=== PATIENT | female | born 1965 | race Caucasian/White ===

== ENCOUNTER → 2017-06-05 18:01 | Outpatient (CLI) | payer BC, SELFPAY ==
--- NOTE | 2017-06-05 18:05 | CT_ITS ---
STUDY: CT CHEST WITH CONTRAST REASON FOR EXAM: Female, 52 years old. RADIATION DOSAGE (If Supplied By Facility): CTDIvol = ( 8.64 ) mGy, DLP = ( 257.66 ) mGycm TECHNIQUE: Transaxial imaging was performed following intravenous administration of 100 ml of Isovue 300 contrast material. Multiplanar coronal and sagittal images were reformatted. Individualized dose optimization techniques were used for this CT. COMPARISON: 05/09/2016 FINDINGS: Mild apical pleural thickening. There is a 6 mm pulmonary nodule left upper lung on image 25. Stable 3.5 mm pulmonary nodule in the superior segment of the right lower lung on image 63. No acute infiltrate. There is no demonstrated pleural abnormality. Normal heart and pericardium. Normal mediastinum. Normal hilar regions. Normal enhanced pulmonary arteries. Normal aorta arch and descending thoracic aorta. Normal osseous structures. There is no demonstrated abnormality of the visualized upper abdomen. CT/Chest WITH Contrast IMPRESSION: Stable small pulmonary nodules. No new pulmonary nodules. No acute infiltrate. Electronically Signed: Popeye Herzog DO at 19:16 EST , Service support ,
== END ==
PROVIDERS: Family Provider Family Medicine; PCP Family Medicine; Visit Provider Family Medicine
DX: R91.8 Other nonspecific abnormal finding of lung field (principal)
CPT/HCPCS: 71260; Q9967

== ENCOUNTER → 2017-07-10 11:18 | Outpatient (CLI) | payer BC, SELFPAY ==
[2017-07-10 15:09] LABS: Absolute Lymphocyte Count 2.01 X10^3/ul (0.83-4.51); Absolute Neutrophil Count 3.7 X10^3/uL (2.0-7.7); Basophil# 0.02 X10^3/uL; Basophil% 0.3 % (0-1); Eosinophil# 0.11 X10^3/uL; Eosinophils% 1.8 % (0-5); Hematocrit 45.7 % (37-47); Hemoglobin 15.3 g/dl (12.0-15.0); Lymphocyte # 2.01 X10^3/ul (4.0); Lymphocyte % 32.4 % (19-41); Mean Corp Hgb Conc 33.5 g/gl (32-36); Mean Corpuscular Hgb 29.7 pg (27.0-32.0); Mean Corpuscular Volume 88.7 fL (81-99); Mean Platelet Vol. 9.7 fl (6.2-12.0); Monocyte# 0.38 X10^3/uL; Monocyte% 6.1 % (0-10); Neutrophil # 3.68 X10^3/uL (2.7-7.7); Neutrophil % 59.4 % (47-70); POSITIVE COUNT NO; POSITIVE DIFFERENTIAL NO; POSITIVE MORPHOLOGY NO; Platelet Count 195 K/mm3 (150-450); RBC Distribution Width SD 41.9 fl (35.1-43.9); Red Blood Count 5.15 M/mm3 (4.2-5.4); White Blood Count 6.2 K/mm3 (4.4-11.0)
[2017-07-10 15:27] LABS: Anion Gap 8 (5-15); BUN 13 mg/dL (7-18); BUN/Creat Ratio 15.2 RATIO (10-20); Chloride 101 mmol/L (98-107); Cholesterol 251 mg/dL (200); Creatinine, Serum 0.85 mg/dL (0.55-1.02); EST Glomerular Filtration Rate 75 mL/min (>60); Est Glom Filt Rate - Afr Amer 91 mL/min (>60); Glucose 79 mg/dL (74-106); High Density Lipoprotein 56 mg/dL; Potassium 3.8 mmol/L (3.5-5.1); Sodium Level 140 mmol/L (136-145); Thyroid Stim Hormone (TSH) 1.13 uIU/mL (0.358-3.74); Triglycerides 132 mg/dL; Very Low Density Lipoprotein 26 mg/dL (5-40)
== END ==
PROVIDERS: Family Provider Family Medicine; PCP Family Medicine; Visit Provider Family Medicine
DX: E03.9 Hypothyroidism, unspecified (principal); J44.9 Chronic obstructive pulmonary disease, unspecified
CPT/HCPCS: 36415; 80048; 80061; 84443; 85025

== ENCOUNTER → 2017-08-14 10:48 | Outpatient (CLI) | payer BC, SELFPAY | PROVIDERS: Family Provider Family Medicine; PCP Family Medicine; Visit Provider Family Medicine | DX: J44.9 Chronic obstructive pulmonary disease, unspecified (principal) | CPT/HCPCS: 87070; 87205 ==

== ENCOUNTER → 2017-12-21 16:34 | Outpatient (CLI) | payer BC, SELFPAY ==
--- NOTE | 2017-12-21 16:37 | RAD_ITS ---
STUDY: X-RAY CHEST REASON FOR EXAM: Female, 52 years old. COPD and wheezing and cough. TECHNIQUE: Single AP portable view of the chest. COMPARISON: 01 January 2017 FINDINGS: The lungs are clear and expanded. Mild COPD related changes are present. There is no demonstrated pleural abnormality. Normal size heart. Normal mediastinum and emerita. Normal visualized pulmonary arteries. Normal visualized aortic arch and descending thoracic aorta. Normal visualized thoracic spine. Normal visualized ribs, clavicles, and shoulders. There is no demonstrated abnormality of the visualized soft tissue structures of the upper abdomen. RAD/Chest PA and Lateral IMPRESSION: No evidence of acute cardiopulmonary process. COPD related changes. Electronically Signed: Andrew Bear DO at 9:08 EDT , Service support ,
== END ==
PROVIDERS: Family Provider Family Medicine; PCP Family Medicine; Visit Provider Family Medicine
DX: J44.9 Chronic obstructive pulmonary disease, unspecified (principal)
CPT/HCPCS: 71046

== ENCOUNTER → 2017-12-24 15:51 | Outpatient (CLI) | payer BC, SELFPAY | PROVIDERS: Family Provider Family Medicine; PCP Family Medicine; Visit Provider Family Medicine | DX: J44.9 Chronic obstructive pulmonary disease, unspecified (principal) | CPT/HCPCS: 87070; 87205 ==

== ENCOUNTER → 2018-01-14 08:02 | Outpatient (CLI) | payer BC, SELFPAY | PROVIDERS: Family Provider Family Medicine; PCP Family Medicine; Visit Provider Family Medicine | DX: J44.1 Chronic obstructive pulmonary disease with (acute) exacerbation (principal) | CPT/HCPCS: 87015; 87070; 87102; 87106; 87116; 87205; 87206 ==

== ENCOUNTER → 2018-01-21 09:30 | Outpatient (CLI) | payer BC, SELFPAY ==
[2018-01-21 12:28] LABS: Absolute Lymphocyte Count 1.54 X10^3/ul (0.83-4.51); Basophil# 0.02 X10^3/uL; Basophil% 0.4 % (0-1); Eosinophil# 0.07 X10^3/uL; Eosinophils% 1.4 % (0-5); Hematocrit 46.5 % (37-47); Hemoglobin 15.7 g/dl (12.0-15.0); Lymphocyte # 1.54 X10^3/ul (4.0); Lymphocyte % 30.6 % (19-41); Mean Corp Hgb Conc 33.8 g/gl (32-36); Mean Corpuscular Hgb 29.5 pg (27.0-32.0); Mean Corpuscular Volume 87.2 fL (81-99); Mean Platelet Vol. 9.7 fl (6.2-12.0); Monocyte# 0.39 X10^3/uL; Monocyte% 7.8 % (0-10); Neutrophil % 59.6 % (47-70); Platelet Count 182 K/mm3 (150-450); RBC Distribution Width CV 12.8 % (11.6-14.6); RBC Distribution Width SD 41.1 fl (35.1-43.9); Red Blood Count 5.33 M/mm3 (4.2-5.4)
[2018-01-21 12:30] LABS: POSITIVE COUNT NO; POSITIVE DIFFERENTIAL NO; POSITIVE MORPHOLOGY NO
[2018-01-21 12:45] LABS: Erythrocyte Sedimentation Rate 4 mm/hr (0-30)
[2018-01-24 17:34] LABS: Immunoglobulin E 13 IU/mL (0-100)
[2018-01-25 15:20] LABS: Angiotensin Convert Enzyme 54 U/L (14-82)
== END ==
PROVIDERS: Family Provider Family Medicine; PCP Family Medicine; Visit Provider Internal Medicine Pulmonary Disease
DX: J44.9 Chronic obstructive pulmonary disease, unspecified (principal); R06.09 Other forms of dyspnea
CPT/HCPCS: 36415; 82164; 82785; 85025; 85652

== ENCOUNTER → 2018-08-21 16:23 | Outpatient (CLI) | payer BC, SELFPAY ==
--- NOTE | 2018-08-21 16:26 | RAD_ITS ---
STUDY: X-RAY - PELVIS AND LEFT HIP REASON FOR EXAM: Female, 53 years old. Sharp intermittent left hip pain when walking TECHNIQUE: 3 views of the pelvis and hip. COMPARISON: None. FINDINGS: There is a non-specific bowel gas pattern. Normal visualized soft tissue structures. Normal bilateral iliac wings, sacroiliac joints and visualized sacrum. Normal bilateral superior and inferior pubic rami. Normal pubic symphysis. Normal bilateral ischial tuberosities. There are osteoarthritic changes of the lower femoral head with marginal osteophyte formation. Normal acetabulum. There is mild articular joint space narrowing of the left hip. RAD/HIP, UNI W/ Pelvis 2-3 Views IMPRESSION: Mild degenerative changes of the left hip. Electronically Signed: Kennedy Montesinos DO at 23:56 EDT Tel [phone], Service support ,
== END ==
PROVIDERS: Family Provider Family Medicine; PCP Family Medicine; Referring Provider Family Medicine; Visit Provider Family Medicine
DX: M25.552 Pain in left hip (principal)
CPT/HCPCS: 73502

== ENCOUNTER → 2019-01-14 16:52 | Outpatient (CLI) | payer BC, SELFPAY ==
[2019-01-14 18:02] LABS: ALB/GLOB Ratio 1.6 RATIO (0.9-2.4); AST(SGOT) 17 U/L (15-37); Alanine Aminotransfer ALT/SGPT 19 U/L (13-56); Albumin, Serum 4.3 g/dL (3.2-5.0); Alkaline Phosphatase 101 U/L (45-117); Anion Gap 7 (5-15); BUN 7 mg/dL (7-18); BUN/Creat Ratio 10.1 RATIO (10-20); Calcium,Total 9.1 mg/dL (8.5-10.1); Chloride 105 mmol/L (98-107); Cholesterol 213 mg/dL (200); Creatinine, Serum 0.69 mg/dL (0.55-1.02); EST Glomerular Filtration Rate 95 mL/min (>60); Est Glom Filt Rate - Afr Amer 115 mL/min (>60); Globulin 2.7 g/dL (2.2-4.2); Glucose 75 mg/dL (74-106); High Density Lipoprotein 54 mg/dL; Potassium 3.8 mmol/L (3.5-5.1); Sodium Level 140 mmol/L (136-145); Thyroid Stim Hormone (TSH) 0.05 uIU/mL (0.358-3.74); Triglycerides 64 mg/dL; Very Low Density Lipoprotein 13 mg/dL (5-40)
== END ==
PROVIDERS: Family Provider Family Medicine; PCP Family Medicine; Referring Provider Family Medicine; Visit Provider Family Medicine
DX: J44.9 Chronic obstructive pulmonary disease, unspecified (principal); E78.00 Pure hypercholesterolemia, unspecified; E03.9 Hypothyroidism, unspecified; E55.9 Vitamin D deficiency, unspecified
CPT/HCPCS: 36415; 80053; 80061; 82306; 84443

== ENCOUNTER → 2019-01-15 13:30 | Outpatient (CLI) | payer BC, SELFPAY ==
[2019-01-15 14:29] LABS: Absolute Lymphocyte Count 1.51 X10^3/uL (0.83-4.51); Absolute Neutrophil Count 3.4 X10^3/uL (2.0-7.7); Basophil# 0.02 X10^3/uL; Basophil% 0.4 % (0-1); Eosinophils% 1.8 % (0-5); Hemoglobin 14.5 g/dL (12.0-15.0); Lymphocyte # 1.51 X10^3/ul (4.0); Lymphocyte % 27.8 % (19-41); Mean Corpuscular Hgb 29.2 pg (27.0-32.0); Mean Corpuscular Volume 88.7 fL (81-99); Mean Platelet Vol. 9.9 fl (6.2-12.0); Monocyte# 0.38 X10^3/uL; NRBC Flagged by Analyzer 0 % (0-5); Neutrophil # 3.41 X10^3/uL (2.7-7.7); Neutrophil % 62.6 % (47-70); Platelet Count 167 K/mm3 (150-450); RBC Distribution Width CV 11.9 % (11.6-14.6); RBC Distribution Width SD 38.7 fl (35.1-43.9); Red Blood Count 4.96 M/mm3 (4.2-5.4); White Blood Count 5.4 K/mm3 (4.4-11.0)
== END ==
PROVIDERS: Family Provider Family Medicine; PCP Family Medicine; Referring Provider Family Medicine; Visit Provider Family Medicine
DX: J44.9 Chronic obstructive pulmonary disease, unspecified (principal)
CPT/HCPCS: 36415; 85025

== ENCOUNTER → 2019-01-16 16:09 | Outpatient (CLI) | payer BC, SELFPAY ==
--- NOTE | 2019-01-16 16:12 | RAD_ITS ---
STUDY: X-RAY - LUMBAR SPINE REASON FOR EXAM: Female, 53 years old. Low back pain TECHNIQUE: 6 view(s) of the lumbar spine were obtained. COMPARISON: None FINDINGS: Normal lumbar lordosis. There is a dextroscoliosis of the lumbar spine. There is a normal alignment of the vertebrae in the lateral view. Normal vertebral bodies and endplates. Mild disc space narrowing in the majority of the lumbar spine, significant disc space narrowing at L5/S1 There is no demonstrated fracture. The soft tissue structures are unremarkable. RAD/L/S Spine Min 4 Views IMPRESSION: Degenerative changes of the spine, as detailed above. Electronically Signed: Marcos Mcqueen MD at 10:00 EDT , Service support ,
== END ==
PROVIDERS: Family Provider Family Medicine; PCP Family Medicine; Referring Provider Family Medicine; Visit Provider Family Medicine
DX: M54.5 Low back pain (principal)
CPT/HCPCS: 72110

== ENCOUNTER → 2019-02-11 12:16 | Outpatient (CLI) | payer BC, SELFPAY ==
--- NOTE | 2019-02-11 12:19 | BI_ITS ---
MAMMOGRAPHY - BILATERAL SCREENING REASON FOR EXAM: Female, 53 years old. Routine annual screening examination. PERTINENT HISTORY: Non-contributory. TECHNIQUE: Digital bilateral breast taylor (3D mammographic acquisition) in the CC and MLO projections. 2-D mediolateral oblique (MLO) and craniocaudad (CC) views of both breasts were obtained. CAD: Full Field Digital Mammography with Computer Added Detection was performed. COMPARISON: Comparison is made with prior study dated February 08, 2016 and April 11, 2012. FINDINGS: Breast Composition: The breasts are heterogeneously dense, which may obscure small masses. There are no dominant masses or suspicious calcifications. No other significant abnormalities are identified. There has been no significant change since the prior study. BI/SCREEN MAMM (CAD) W/TAYLOR BILAT IMPRESSION: Stable bilateral screening mammogram. Yearly follow-up mammogram recommended. (A) ASSESSMENT CATEGORY: BIRADS Category 1: Negative. A letter regarding these results will be sent to the patient by the facility within 30 days. Approximately 10% of breast cancers are not detected by mammography. A normal mammogram should not delay biopsy of a clinically suspicious abnormality. [id number] Electronically Signed: Jose Maria Grigsby, at 14:13 EST , Service support ,
--- NOTE | 2019-02-11 12:26 | BD_ITS ---
STUDY: DUAL ENERGY X-RAY ABSORPTIOMETRY / DXA REASON FOR EXAM: Female, 53 years old. Early menopause. Loss of height. TECHNIQUE: Bone Mineral Density (BMD) measurements of lumbar spine and bilateral hips were obtained. COMPARISON: Comparison is made with prior study dated February 08, 2016. FINDINGS: Lumbar Spine (L1-L4): g/cm2 (0.807) / T-score (-3.1) / Z-score (-2.6) Findings are suggestive of osteoporosis with a high fracture risk. Left Femur Total: g/cm2 (0.657) / T-score (-2.8) / Z-score (-2.3) Left Femoral Neck: g/cm2 (0.669) / T-score (-2.7) / Z-score (-1.8) Right Femur Total: g/cm2 (0.631) / T-score (-3.0) / Z-score (-2.5) Right Femoral Neck: g/cm2 (0.674) / T-score (-2.6) / Z-score (-1.8) The T-Scores on the most recent prior examination were: Lumbar Spine (L1-L4): There has been improvement of bone density since the previous examination. Left Femur Total: which represents an improvement of 5%. Right Femur Total: which represents an improvement of 1.9%. BD/Dexa Bone Density Study IMPRESSION: The patient is considered osteoporotic as outlined below according to World Justin Organization (WHO) criteria with a high fracture risk. There has been improvement of bone density since the previous examination. Reference Information: The T-score is the number of standard deviations above or below the standard which is normal for young adults at their peak bone mineral density. The World Health Organization (WHO) interprets the T-scores as follows: Above -1 Normal bone density Between -1 and -2.5 Osteopenia Equal to / or below -2.5 Osteoporosis As a practical clinical guideline, osteopenia may be graded as follows: Mild -1 through -1.5 Moderate -1.6 through -2.0 Severe -2.1 through -2.4 The Z-score is the number of standard deviations above or below age-matched controls. A Z-score of less than -1.5 would be considered abnormal. References: 1. NIH Osteoporosis and Related Bone Diseases http://www.osteo.org 2. International Society for Clinical Densitometry http://www.iscd.org 3. National Osteoporosis Foundation http://www.nof.org Electronically Signed: Jose Maria Grigsby, at 15:09 EST , Service support ,
== END ==
PROVIDERS: Family Provider Family Medicine; PCP Family Medicine; Referring Provider Family Medicine; Visit Provider Family Medicine
DX: Z12.31 Encounter for screening mammogram for malignant neoplasm of breast (principal); M81.0 Age-related osteoporosis without current pathological fracture
CPT/HCPCS: 77063; 77067; 77080

== ENCOUNTER 2019-02-20 18:30 | Outpatient (RCR) | payer BC, SELFPAY ==
--- NOTE | 2019-01-31 08:06 | HP.PTEVAL_ITS ---
Patient's Visit Information JODEE SAAVEDRA is a 53 year old F referred to Physical Therapy by Monika Conway MD with a diagnosis of LBP, L hip tendonitis. Date of Evaluation: 01/31/19 Physical Therapist: Tim Leos, PT, ATC - Visit Plan Frequency: 2x /Week Duration: 4-6 Weeks Plan: Postural edu, SKTC/DKTC, core stab ex's, nustep, and HEP - Subjective Findings: Pt reports she has had LBP and L hip pain for a couple weeks. Pt reports both of her legs will fall asleep on her, especially when she is driving. Pt reports her pain had an insidious onset in nature, but notes she has 2 jobs and believes this may be the cause. 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 Pt has had xrays of the hip and LB which revealed OA of the hip and disc space narrowing of the entire L/S. Pt reports lying down tends to increase her pain, but if she gets up and moves she feels better. Pt reports pain radiates into her L groin when her pain is the worst. Pt reports postural correction helps to decrease her LBP. 1/10 LBP at rest, 10/10 at worst. L hip pain is 0/10 at rest, 10/10 with specific movements. - Pain LBP Pain Intensity (Out of 10): 1 Pain Intensity Range: 10 L hip Pain Intensity (Out of 10): 0 Pain Intensity Range: 10 - Objective Neuro: B LE sensation is WNL to light touch. B patellar reflex= 2/3. ROM: ext of the L/S is moderately limited. Minor limitations with SB. flex is WNL. MMT: B LE's are grossly 5/5 throughout. RFIL decreases pain. special tests: No pos tests for the hip. Repeated movements: REIL peripheralized sx's into R LE. RFIL centralized and decreased pain. - Goals Goal 1:: Decrease LBP x 50% to aid with sleep Goal Time Frame: 4-6 Weeks Goal 2:: Decrease the frequency and intensity of LE radiculopathy x 50% to aid with increasing tolerance for work requirements Goal Time Frame: 4-6 Weeks Goal 3:: Pt will both verbally and physically display proper posture to aid with decreasing LBP Goal Time Frame: 4-6 Weeks Goal 4:: I with HEP Goal Time Frame: 4-6 Weeks - Rehabilitation Potential Physical Therapy Diagnosis: Pt has LBP, LE radiculopathy, and decreased L/S ROM secondary to deg changes of the L/S Rehabilitation Potential: Good - Anticipated Interventions Patient/Client Instruction: Educate patient on: Condition, Plan of Care For the Purpose of:: To improve self management Therapeutic Exercise to Include: Strength training, Endurance training, Body mechanics, Postural training, Dynamic Lumbar Stabilization For the Purpose of:: To decrease pain, To increase ROM, To improve muscle performance and motor function Cryotherapy (ice pack, ice massage): Yes Thermo therapy (hot pack): Yes For the Purpose of:: To decrease pain Thank you for the opportunity to evaluate your patient. For Medicare and Medicare HMO plans, please review the plan of care and approve it. It will need to be FAXED BACK to us at [phone] for Medicare purposes. For Medicare only, by signing this I certify the plan of care. Please let me know if there are questions or concerns regarding this plan of care. Physician Signature:___ Date:
--- NOTE | 2019-06-18 07:18 | HP.PT.NRP ---
JODEE SAAVEDRA was seen in my office for initial evaluation on 01/31/19. The following Plan of Care was established for this patient: Initial Frequency: 2x /Week Initial Duration: 4-6 Weeks Patient/Client Instruction: Educate patient on: Condition, Plan of Care For the Purpose of:: To improve self management Therapeutic Exercise to Include: Strength training, Endurance training, Body mechanics, Postural training, Dynamic Lumbar Stabilization For the Purpose of:: To decrease pain, To increase ROM, To improve muscle performance and motor function Cryotherapy (ice pack, ice massage): Yes Thermo therapy (hot pack): Yes For the Purpose of:: To decrease pain This patient was last seen in our office . Pertinent comments regarding their Physical therapy will appear below: Pt was treated for one visit for LBP and L hip pain through the date of 02/20/19. Pt has not returned through this date and is discontinued at this time. At this point I will be discontinuing this patient from physical therapy. I would be happy to see this patient again in the future if found appropriate by the physician. Thank you! Tim Leos, PT, ATC
== END 2019-02-20 19:00 | disposition home or self-care (01) ==
LOC: PT 18:30
PROVIDERS: Family Provider Family Medicine; PCP Family Medicine; Referring Provider Family Medicine; Visit Provider Family Medicine
DX: M76.891 Other specified enthesopathies of right lower limb, excluding foot (principal); M54.5 Low back pain
CPT/HCPCS: 97110; 97161

== ENCOUNTER → 2019-03-14 06:51 | Outpatient (CLI) | payer SELFPAY ==
--- NOTE | 2019-03-14 06:57 | CT_ITS ---
STUDY: LOW DOSE CT LUNG CANCER SCREENING REASON FOR EXAM: Female, 53 years old. Tobacco abuse. Patient has a history of smoking 1 pack per day for 38 years. RADIATION DOSAGE (If Supplied By Facility): CTDIvol = ( 2.01 ) mGy, DLP = ( 71.98 ) mGycm TECHNIQUE: No contrast was administered. Low dose technique was utilized (average mAS-38 and kVp 120). 1.25 mm axial source images with a slice interval of 1.25-mm were reconstructed in lung windows. 2.5 mm axial source images with a slice interval of 2.5-mm were reconstructed in lung windows. 5.0 mm axial source images with a slice interval of 5.0-mm were reconstructed in soft tissue windows. Nodule measured using lung windows on PACS and/or independent workstation with automated measurement of minimum and maximum diameter. Nodule measurement reported as average diameter rounded to the nearest whole number. Growth is defined as an increase ins size of greater than 1.5 mm. COMPARISON: Comparison is made with prior study dated June 05, 2017. NODULES: Stable apical pleural scarring. Stable calcified granuloma in the posterior aspect of the right middle lobe. Emphysema: Mild degree of emphysematous changes in the upper lobes. Endobronchial lesion: Aorta: Unremarkable. Coronary arteries: Unremarkable. Mediastinal nodes: Small mediastinal lymph nodes are seen. Other chest and abdominal findings: CT/Low Dose CT Lung Screening IMPRESSION: Lung-RADS category 2 - Continue annual screening with LDCT in 12 months. IMPORTANT NOTES FOR USE: ACR Lung-RADS Version 1.0 Assessment Categories Release Date: July 28, 2013 Category: Coded 0-4 bases on nodule(s) with highest degree of suspicion. Negative screen is defined as categories 1 and 2; a positive screen is defined as categories 3 and 4. Category 3 and 4A nodules that are unchanged on interval CT should be coded as category 2, and individuals returned to screening in 12 months. Category 4X: Category 3 or 4 nodules with additional imaging findings that increase the suspicion of lung cancer, such as spiculation, GGN that doubles in size in 1 year, enlarged lymph notes, etc. Category Modifiers: S (significant finding unrelated to lung cancer) and C (prior history of treated lung cancer) may be added to the 0-4 Lung-RADS Electronically Signed: Jose Maria Grigsby, at 13:59 EST , Service support ,
== END ==
PROVIDERS: Family Provider Family Medicine; PCP Family Medicine; Referring Provider Internal Medicine Pulmonary Disease; Visit Provider Internal Medicine Pulmonary Disease
DX: Z12.2 Encounter for screening for malignant neoplasm of respiratory organs (principal); Z87.891 Personal history of nicotine dependence
CPT/HCPCS: G0297

== ENCOUNTER → 2021-10-04 | Outpatient (CLI) | payer SELFPAY ==
[2021-10-04 10:08] LABS: Absolute Lymphocyte Count 1.19 X10^3/uL (0.83-4.51); Absolute Neutrophil Count 1.8 X10^3/uL (2.0-7.7); Basophil# 0.03 X10^3/uL; Basophil% 0.9 % (0-1); Eosinophil# 0.09 X10^3/uL; Eosinophils% 2.7 % (0-5); Hematocrit 44.3 % (37-47); Hemoglobin 14.7 g/dL (12.0-15.0); Lymphocyte # 1.19 X10^3/ul (0.83-4.51); Lymphocyte % 35.3 % (19-41); Mean Corp Hgb Conc 33.2 g/dL (32-36); Mean Corpuscular Hgb 28.8 pg (27.0-32.0); Mean Corpuscular Volume 86.9 fL (81-99); Mean Platelet Vol. 9.3 fl (6.2-12.0); Monocyte# 0.26 X10^3/uL; Monocyte% 7.7 % (0-10); NRBC Flagged by Analyzer 0 % (0-5); Neutrophil % 53.4 % (47-70); Platelet Count 175 K/mm3 (150-450); RBC Distribution Width CV 12.6 % (11.6-14.6); RBC Distribution Width SD 39.8 fl (35.1-43.9); White Blood Count 3.4 K/mm3 (4.4-11.0)
[2021-10-04 10:34] LABS: AST(SGOT) 52 U/L (15-37); Alanine Aminotransfer ALT/SGPT 43 U/L (13-56); Cholesterol 252 mg/dL (200); High Density Lipoprotein 63 mg/dL; T4 Total, Thyroxin 10.8 ug/dL (4.8-13.9); Thyroid Stim Hormone (TSH) 5.81 uIU/mL (0.358-3.74); Triglycerides 65 mg/dL; Very Low Density Lipoprotein 13 mg/dL (5-40)
== END | disposition home or self-care (01) ==
PROVIDERS: PCP Family Medicine; Referring Provider Family Medicine; Visit Provider Family Medicine
DX: J44.9 Chronic obstructive pulmonary disease, unspecified (principal); E78.00 Pure hypercholesterolemia, unspecified; E03.9 Hypothyroidism, unspecified
CPT/HCPCS: 36415; 80061; 84436; 84443; 84450; 84460; 85025

== ENCOUNTER → 2021-10-05 | Outpatient (CLI) | payer SELFPAY ==
[2021-10-10 20:07] LABS: HPV HC, High Risk Negative
== END | disposition home or self-care (01) ==
LOC: LABSPEC 15:13
PROVIDERS: PCP Family Medicine; Referring Provider Family Medicine; Visit Provider Family Medicine
DX: Z12.4 Encounter for screening for malignant neoplasm of cervix (principal)
CPT/HCPCS: 87624; 88175; G0145

== ENCOUNTER → 2021-10-13 | Outpatient (CLI) | payer SELFPAY ==
--- NOTE | 2021-10-13 14:33 | RAD_ITS ---
STUDY: X-RAY - LUMBAR SPINE REASON FOR EXAM: Female, 56 years old. BACK PAIN TECHNIQUE: 4 view(s) of the lumbar spine were obtained. COMPARISON: X-rays lumbar spine 01/16/2019. FINDINGS: Vertebral bodies are normal in height. No definite fracture demonstrated. No subluxation. Moderate curvature convex right. Not significantly changed compared to prior study. Disc space narrowing with osteophytes most pronounced at L5-S1. Facet arthropathy most pronounced at the lower levels. No paravertebral soft tissue mass identified. RAD/L/S Spine Min 4 Views IMPRESSION: Degenerative changes and scoliosis. No significant change compared to prior study. Electronically Signed: Machelle Ramirez MD at 2:29 EDT ,
--- NOTE | 2021-10-13 14:34 | RAD_ITS ---
STUDY: X-RAY - PELVIS AND BILATERAL HIPS REASON FOR EXAM: Female, 56 years old. Tendinitis of the right hip. TECHNIQUE: AP view of the pelvis.? 2 views of the right hip, and 2 views of the left hip were obtained. COMPARISON: None. FINDINGS: There is a non-specific bowel gas pattern. Normal visualized soft tissue structures. Normal bilateral iliac wings, sacroiliac joints and visualized sacrum. Normal bilateral superior and inferior pubic rami. Normal pubic symphysis. Normal bilateral ischial tuberosities. Normal visualized right femoral head. Normal right acetabulum. Normal right hip joint. Normal visualized left femoral head. Normal left acetabulum. Normal left hip joint. RAD/Hips B/L min 2 views w/ Pelvis IMPRESSION: Normal x-ray examination of the pelvis and bilateral hips. Electronically Signed: Kennedy Montesinos DO at 23:25 EDT ,
== END | disposition home or self-care (01) ==
PROVIDERS: PCP Family Medicine; Referring Provider Family Medicine; Visit Provider Family Medicine
DX: M54.9 Dorsalgia, unspecified (principal); M76.891 Other specified enthesopathies of right lower limb, excluding foot
CPT/HCPCS: 72110; 73521

== ENCOUNTER → 2021-10-26 | Outpatient (CLI) | payer SELFPAY ==
--- NOTE | 2021-10-26 13:56 | BI_ITS ---
MAMMOGRAPHY - BILATERAL SCREENING REASON FOR EXAM: Female, 56 years old. Routine annual screening examination. PERTINENT HISTORY: Non-contributory. TECHNIQUE: Digital bilateral breast taylor (3D mammographic acquisition) in the CC and MLO projections. 2-D mediolateral oblique (MLO) and craniocaudad (CC) views of both breasts were obtained. CAD: Full Field Digital Mammography with Computer Added Detection was performed. COMPARISON: Comparison is made with prior study dated 02/11/2019 and 02/08/2016. FINDINGS: Breast Composition: The breasts are heterogeneously dense, which may obscure small masses. There are no dominant masses or suspicious calcifications. No other significant abnormalities are identified. There has been no significant change since the prior study. BI/SCRN MAMM (CAD)W/TAYLOR BILAT IMPRESSION: Stable bilateral screening mammogram. Yearly follow-up mammogram recommended. (A) ASSESSMENT CATEGORY: BIRADS Category 1: Negative. A letter regarding these results will be sent to the patient by the facility within 30 days. Approximately 10% of breast cancers are not detected by mammography. A normal mammogram should not delay biopsy of a clinically suspicious abnormality. [id number] Electronically Signed: Jose Maria Grigsby MD at 14:31 EDT ,
== END | disposition home or self-care (01) ==
LOC: OPBI 13:53
PROVIDERS: PCP Family Medicine; Visit Provider Family Medicine
DX: Z12.31 Encounter for screening mammogram for malignant neoplasm of breast (principal)
CPT/HCPCS: 77063; 77067

== ENCOUNTER → 2022-02-01 | Outpatient (CLI) | payer SELFPAY ==
--- NOTE | 2022-02-01 12:48 | RAD_ITS ---
STUDY: X-RAY CHEST REASON FOR EXAM: Female, 56 years old. COPD. Shortness of breath. TECHNIQUE: Frontal and lateral views of the chest. COMPARISON: December 21, 2017. FINDINGS: Stable mild hyperinflation. There is no demonstrated pleural abnormality. Normal size heart. Normal mediastinum and emerita. Normal visualized pulmonary arteries. Normal visualized aortic arch and descending thoracic aorta. Normal visualized thoracic spine. Normal visualized ribs, clavicles, and shoulders. There is no demonstrated abnormality of the visualized soft tissue structures of the upper abdomen. RAD/Chest PA and Lateral IMPRESSION: Stable mild hyperinflation with no acute or active cardiopulmonary disease. Electronically Signed: Mc Mancia, at 9:28 EDT ,
[2022-02-01 15:37] LABS: Thyroid Stim Hormone (TSH) 0.33 uIU/mL (0.358-3.74)
== END | disposition home or self-care (01) ==
PROVIDERS: PCP Family Medicine; Referring Provider Family Medicine; Visit Provider Family Medicine
DX: J44.9 Chronic obstructive pulmonary disease, unspecified (principal); E03.9 Hypothyroidism, unspecified
CPT/HCPCS: 36415; 71046; 84443

== ENCOUNTER → 2022-02-08 | Outpatient (CLI) | payer SELFPAY ==
--- NOTE | 2022-02-08 13:18 | CT_ITS ---
STUDY: LOW DOSE CT LUNG CANCER SCREENING REASON FOR EXAM: Female, 56 years old. Nicotine dependance. The patient swallowed one and half pack per day for 30 years. RADIATION DOSAGE (If Supplied By Facility): CTDIvol = ( 2.01 ) mGy, DLP = ( 74.49 ) mGycm TECHNIQUE: No contrast was administered. Low dose technique was utilized (average mAS-38 and kVp 120). 1.25 mm axial source images with a slice interval of 1.25-mm were reconstructed in lung windows. 2.5 mm axial source images with a slice interval of 2.5-mm were reconstructed in lung windows. 5.0 mm axial source images with a slice interval of 5.0-mm were reconstructed in soft tissue windows. COMPARISON: Comparison is made with prior study dated 03/14/2019. NODULES: No suspicious nodules are seen. Stable tiny calcified granuloma in the posterior medial aspect of the right upper lobe. Stable calcified granuloma in the posterior aspect of the right middle lobe abutting the right major fissure. Emphysema: Hyperinflation. Mild degree of emphysematous changes worse in the upper lobes. Endobronchial lesion: Unremarkable. Aorta: Mild degree of atherosclerotic plaque formation of the aortic arch. CORONARY ARTERIES: Coronary artery calcification is not seen. Heart: Minimal thickening of the anterior pericardium. Pulmonary artery: Unremarkable Mediastinal nodes: Stable small mediastinal lymph nodes. Other chest and abdominal findings: CT/Low Dose CT Lung Screening IMPRESSION: Lung-RADS category 2 - Continue annual screening with LDCT in 12 months. IMPORTANT NOTES FOR USE: ACR Lung-RADS Version 1.1 Assessment Categories Release Date: 2018 Category: Coded 0-4 bases on nodule(s) with highest degree of suspicion. Negative screen is defined as categories 1 and 2; a positive screen is defined as categories 3 and 4. Category 3 and 4A nodules that are unchanged on interval CT should be coded as category 2, and individuals returned to screening in 12 months. Category 4X: Category 3 or 4 nodules with additional imaging findings that increase the suspicion of lung cancer, such as spiculation, GGN that doubles in size in 1 year, enlarged lymph notes, etc. Category Modifiers: S (significant finding unrelated to lung cancer) Electronically Signed: Jose Maria Grigsby MD at 14:04 EST ,
== END | disposition home or self-care (01) ==
PROVIDERS: PCP Family Medicine; Referring Provider Family Medicine; Visit Provider Family Medicine
DX: Z12.2 Encounter for screening for malignant neoplasm of respiratory organs (principal); Z87.891 Personal history of nicotine dependence
CPT/HCPCS: 71271

== ENCOUNTER → 2022-02-28 | Outpatient (CLI) | payer SELFPAY ==
--- NOTE | 2022-02-28 09:42 | ECHOD_ITS ---
Reason For Study: SOB Procedure This was a 2D Doppler, Color Flow transthoracic echocardiogram. The study was technically difficult. Exam performed in department. Left Ventricle Normal LV size. Apical false tendon noted. Left ventricular systolic function is normal. The estimated ejection fraction is 65 %. No evidence for diastolic dysfunction. No regional wall motion abnormalities noted. Right Ventricle Normal RV size. Normal systolic function. Atria Normal left atrium. Normal right atrium. No doppler evidence for ASD. Mitral Valve There is no mitral annular calcification. Anterior leaflet diffuse mitral valve thickening. Trivial mitral valve insufficiency. Tricuspid Valve Normal tricuspid valve. Trivial tricuspid valve insufficiency. Unable to estimate RV systolic pressure/pulmonary artery pressure due to technically difficult study. Aortic Valve The aortic valve is not well visualized. Pulmonic Valve The pulmonic valve is not well visualized. Great Vessels Normal sized aortic root. Pericardium/Pleural No pericardial effusion. MMode/2D Measurements & Calculations LVIDd: 4.2 cm IVSd: 0.70 cm Ao root diam: 2.7 cm LVIDs: 2.6 cm LVPWd: 0.94 cm FS: 38.0 % LAV(MOD-bp): 38.2 ml LVAd ap4: 22.8 cm2 SV(MOD-sp4): 35.2 ml LAV(MOD-bp) Indexed: 21.7 ml/m2 LVLd ap4: 7.6 cm LAV(MOD-sp2): 50.8 ml EDV(MOD-sp4): 56.6 ml LAV(MOD-sp4): 25.1 ml EDV(sp4-el): 58.0 ml LVAs ap4: 12.4 cm2 LVLs ap4: 6.2 cm ESV(MOD-sp4): 21.4 ml ESV(sp4-el): 21.2 ml EF(MOD-sp4): 62.1 % EF(sp4-el): 63.5 % SV(sp4-el): 36.8 ml LA A4 area: 12.2 cm2 LA dimension(2D): 3.1 cm RA A4 area: 12.1 cm2 Time Measurements MV dec time: 0.14 sec Doppler Measurements & Calculations MV E max satinder: 77.6 cm/sec Lat Peak E' Satinder: 11.9 cm/sec Med Peak E' Satinder: 14.5 cm/sec MV A max satinder: 45.6 cm/sec E/E' lat: 6.5 E/E' med: 5.4 MV E/A: 1.7 MV V2 max: 88.2 cm/sec Ao V2 max: 85.7 cm/sec MV max P.1 mmHg MV dec slope: 560.6 cm/sec2 Ao max P.9 mmHg MV V2 mean: 49.6 cm/sec Ao V2 mean: 56.1 cm/sec MV mean P.1 mmHg Ao mean P.5 mmHg MV V2 VTI: 27.8 cm Ao V2 VTI: 20.6 cm AV (velocity ratio): 0.85 LV V1 max: 77.4 cm/sec LV V1 max P.4 mmHg LV V1 mean P.2 mmHg LV V1 mean: 49.7 cm/sec LV V1 VTI: 17.5 cm ECHO/Echo Complete Interpretation Summary The study was technically difficult. Left ventricular systolic function is normal. The estimated ejection fraction is 65 %. Apical false tendon noted. Anterior leaflet diffuse mitral valve thickening. Trivial mitral valve insufficiency. Trivial tricuspid valve insufficiency. Unable to estimate RV systolic pressure/pulmonary artery pressure due to techni jose difficult study. No evidence for diastolic dysfunction. Ordering Physician: Monika Conway Referring Physician: Monika Conway Performed By: Kait Hastings RCS
== END | disposition home or self-care (01) ==
LOC: CVS 09:41
PROVIDERS: PCP Family Medicine; Referring Provider Family Medicine; Visit Provider Family Medicine
DX: R06.02 Shortness of breath (principal)
CPT/HCPCS: 93306

== ENCOUNTER → 2022-03-10 | Outpatient (CLI) | payer SELFPAY ==
--- NOTE | 2022-03-10 11:41 | PFTCOMP_ITS ---
COMPLETE PULMONARY FUNCTION TEST INTERPRETATION Brief HPI: Patient is a 56-year-old female, currently under the care of Dr. Moore, who presents to [facility] for complete pulmonary function tests secondary to diagnosis of dyspnea. Respiratory therapist reports good effort and reproducible results. Interpretation: Forced expiration spirometry shows a moderate large airways obstructive ventilatory defect with an FEV1 of 61% predicted. There is a significant bronchodilator response in FEV1 by strict ATS criteria. Spirograms are of good quality and plateau slowly, indicating slowly emptying areas of the lungs. The respiratory flow volume loop shows decreased expiratory flow rates at all lung volumes consistent with airway obstruction. Lung volumes by body plethysmography show a normal total lung capacity at 5.95 L, 107% predicted. FRC and RV are elevated out of proportion. Lung volume measurements are consistent with hyperinflation and air-trapping. Diffusion capacity by carbon monoxide is preserved at 89% predicted. The airway resistance is elevated. No previous pulmonary function tests were available for review. Impression: Partially reversible moderate large airways obstructive ventilatory defect, resulting in air trapping with hyperinflation, but relatively preserved diffusion capacity, and a pattern consistent with COPD/asthma overlap syndrome
--- NOTE | 2022-03-13 11:53 | STRESSREP ---
Stress Test Report Date: 03/13/2022 Procedure: Exercise tolerance test Indications: Dyspnea Consent: Per the patient Procedure: The patient exercised on a Suhail protocol for 12 minutes achieving a peak heart rate of 164 bpm (98% predicted maximal heart rate) with a peak blood pressure 150/60 mmHg and a peak MET capacity of approximately 13.4 MET's. The baseline ECG demonstrated normal sinus rhythm. The peak exercise ECG demonstrated no significant ischemic changes. [There were no cardiac dysrhythmias pretest, during exercise, or recovery]. The functional capacity was considered excellent for age. The patient had no complaint of chest discomfort during exercise or recovery. The examination was discontinued secondary to achieving target heart. Impression: 1. Technically adequate (percent predicted maximal heart rate greater than 85%) exercise tolerance test 2. Stress test is negative for exercise-induced chest pain. 3. Stress test test is negative for exercise-induced EKG changes of ischemia. 4. Functional capacity is excellent for age This note was generated with [employer] software. It may contain incorrect words, spelling, and punctuation that were not noted in checking the note before signing.
== END | disposition home or self-care (01) ==
PROVIDERS: PCP Family Medicine
DX: R06.02 Shortness of breath (principal); J44.9 Chronic obstructive pulmonary disease, unspecified
CPT/HCPCS: 93017; 94060; 94726; 94729

== ENCOUNTER → 2022-05-05 | Outpatient (CLI) | payer SELFPAY ==
--- NOTE | 2022-05-05 07:28 | CT_ITS ---
STUDY: CT SOFT TISSUE NECK WITH CONTRAST REASON FOR EXAM: Female, 56 years old. Midline neck mass x one year. Trouble swallowing and voice changes. RADIATION DOSAGE (If Supplied By Facility): CTDIvol = ( 11.67 ) mGy, DLP = ( 373.18 ) mGycm TECHNIQUE: The patient was scanned in a multi-detector CT scanner. High resolution transaxial imaging was performed following intravenous administration of 75 mL of Isovue-370. Sagittal and coronal images were reconstructed. Individualized dose optimization techniques were used for this CT. COMPARISON: None. FINDINGS: Curvilinear band of hypodensity in the midline thyroid isthmus measuring 12.4 mm wide and 3.2 mm in the AP dimension. This is just above the midline metallic BB marker. There is no mass directly underneath the midline BB marker. Normal right thyroid lobe and normal left thyroid lobe. Normal bilateral parotid glands. Normal bilateral sumo wrestler spaces. Normal bilateral parapharyngeal spaces. Normal bilateral carotid spaces. Normal bilateral sublingual and submandibular glands and spaces. Normal visualized nasopharynx. Normal retropharyngeal space. Normal perivertebral space. Normal visualized bilateral faucial tonsils. The visualized tongue, tongue base and oropharynx are normal. The visualized cervical lymph nodes (levels I-) are within normal size limits, and maintain normal morphology. There is no demonstrated solid or cystic mass lesion. There is no abnormal contrast enhancement. Normal epiglottis, bilateral vallecula and hypopharynx. The pre-epiglottic and paraglottic adipose spaces are normal. Normal visualized bilateral piriform sinuses, aryepiglottic folds, vocal cords, and arytenoid-cricoid articulations. Normal subglottic trachea. Normal visualized pulmonary apices. Normal visualized paranasal sinuses. Normal visualized cervical spine. CT/Soft Tissue Neck WITH Contrast IMPRESSION: No CT evidence of mass or lymphadenopathy particularly underneath the metallic BB marker but just above the BB marker is a midline hypodense thyroid isthmus measuring 12.4 mm Wide and 3.2 mm in the AP dimension. It does not involves bulge or protrude in the neck to suggest a mass. It follows the contour of the anterior tracheal wall. If this is the palpable mass, thyroid ultrasound will be very helpful for more definitive evaluation. Otherwise negative CT neck with contrast. Electronically Signed: Sukumar Hobbs MD at 8:07 EST ,
== END | disposition home or self-care (01) ==
PROVIDERS: PCP Family Medicine; Visit Provider Otolaryngology
DX: R22.1 Localized swelling, mass and lump, neck (principal)
CPT/HCPCS: 70491; Q9967

== ENCOUNTER → 2022-05-24 | Outpatient (CLI) | payer SELFPAY ==
--- NOTE | 2022-05-24 09:45 | ASPOS_PTH ---
PATIENT: JODEE MORALEZ LOC: [facility] U#:[id number] AGE/SX: 57/F ROOM: RE05/24/[address]: Dr. Rusty Hampton MD : 1965 BED: DIS: 05/24/2022 SPEC #: [id number] RECD: 05/24/22 10:00 STATUS: ANN NIETO #: [id number] CATIA: 05/24/22 09:[address]: Rusty Hampton DEPT: CYTOLOGY RECD BY: Yumiko Hale ENTERED: 05/24/22 11:56 SP TYPE: ASP HERE OTHR DR: Dr. Monika Conway MD Tissues: Neck, NOS Procedures: Surgery Specimen Level IV Cytology Other Fine Needle Asp on Site HEADER OPERATION: Fine needle aspiration midline neck mass PRE-OP DIAGNOSIS: Midline neck mass TISSUE SUBMITTED: Midline neck mass DIAGNOSIS CYTOLOGY Fine needle aspiration, midline neck mass (smears and cell block): Consistent with benign cyst contents. See comment. AM:nagi 05/25/2022 COMMENT The specimen is evaluated at the time of FNA by Dr. Rader. Immediate Evaluation = Consistent with contents of benign cyst. The cytology shows abundant macrophages with associated acute and chronic inflammatory cells. Distinct epithelial-lining cells are not identified. Clinical correlation is suggested. CYTOLOGY STUDY Slides are reviewed. CYTOLOGY GROSS Received is 0.1 ml of clear to cloudy material labeled with the patient's name, and designated midline neck mass. Three imprints and three paps are made from the submitted fluid and the rest is added to CytoLyt for cell block preparation. Submitted for cytology study. / nagi 05/24/2022 TC:5 CPT: 03841, 48733, 52645, 24649
== END | disposition home or self-care (01) ==
LOC: LAB 09:18
PROVIDERS: PCP Family Medicine; Referring Provider Otolaryngology; Visit Provider Otolaryngology
DX: R22.1 Localized swelling, mass and lump, neck (principal)
CPT/HCPCS: 10021; 88161; 88305

== ENCOUNTER → 2023-02-09 | Outpatient (CLI) | payer SELFPAY ==
[2023-02-09 18:22] LABS: ALB/GLOB Ratio 1.2 RATIO (0.9-2.4); AST(SGOT) 26 U/L (15-37); Alanine Aminotransfer ALT/SGPT 28 U/L (13-56); Alkaline Phosphatase 98 U/L (45-117); Anion Gap 8 (5-15); BUN 11 mg/dL (7-18); BUN/Creat Ratio 14.4 RATIO (10-20); Chloride 103 mmol/L (98-107); Cholesterol 207 mg/dL (200); Creatinine, Serum 0.76 mg/dL (0.55-1.02); EST Glomerular Filtration Rate 83 mL/min (>60); Est Glom Filt Rate - Afr Amer 101 mL/min (>60); Globulin 3.3 g/dL (2.2-4.2); Glucose 91 mg/dL (74-106); High Density Lipoprotein 63 mg/dL; Protein, Total 7.3 g/dL (6.4-8.2); Sodium Level 138 mmol/L (136-145); T4 Total, Thyroxin 12.5 ug/dL (4.8-13.9); Thyroid Stim Hormone (TSH) 3.74 uIU/mL (0.358-3.74); Triglycerides 70 mg/dL; Very Low Density Lipoprotein 14 mg/dL (5-40)
== END | disposition home or self-care (01) ==
LOC: MFPLAB 15:26
PROVIDERS: PCP Family Medicine; Visit Provider Family Medicine
DX: J44.9 Chronic obstructive pulmonary disease, unspecified (principal); E03.9 Hypothyroidism, unspecified; E78.00 Pure hypercholesterolemia, unspecified
CPT/HCPCS: 36415; 80053; 80061; 84436; 84443

== ENCOUNTER → 2023-02-21 | Outpatient (CLI) | payer SELFPAY ==
--- NOTE | 2023-02-21 18:47 | CT_ITS ---
EXAM: CT CHEST, LUNG CANCER SCREENING WITHOUT INTRAVENOUS CONTRAST CLINICAL INDICATION: HIPOLITOTENE DORY TECHNIQUE: Helically acquired images were obtained of the chest without intravenous contrast using low dose (LDCT) lung cancer screening protocol. This CT exam was performed using one or more of the following dose reduction techniques: automated exposure control, adjustment of the mA and/or kV according to patient size, and/or use of iterative reconstruction technique. COMPARISON: 06/15/2017; 03/14/2019; 02/08/2022. FINDINGS: LUNGS AND PLEURAL SPACES: Focal area of bronchiectasis in the apex of the left upper lobe with possible branching airway filling defect similar to the prior examination. This is likely secondary to remote infection or inflammation. No discrete mass or nodule at this location. Few scattered granulomas are identified. Mild apical scarring without nodules bilaterally. 3 mm nodule in the periphery of the left upper lobe series 2, image 162 is unchanged compared to the prior examination. No pleural effusion or thickening. HEART: No significant abnormality. Heart size is normal. No pericardial effusion. No significant coronary artery calcifications. MEDIASTINUM: No significant abnormality. No mediastinal or hilar adenopathy. Esophagus is unremarkable. No hiatal hernia. THYROID: No significant abnormality. No thyroid lesions. BONES/JOINTS: Degenerative changes in the spine. No suspicious lytic or blastic abnormality. VASCULATURE: Atherosclerosis. Thoracic aorta is non-dilated. LYMPH NODES: No significant abnormality. No enlarged lymph nodes. CT/Low Dose CT Lung Screening IMPRESSION: 1. ACR Lung CT Screening Reporting And Data System (Lung-RADS) score: 2 - Benign Appearance or Behavior. Recommend continued annual screening with a low-dose CT (LDCT) in 12 months. 2. Likely chronic infectious/inflammatory changes. Electronically Signed: Sunny Barrientos DO at 23:59 EST ,
== END | disposition home or self-care (01) ==
PROVIDERS: PCP Family Medicine; Visit Provider Family Medicine
DX: Z87.891 Personal history of nicotine dependence (principal)
CPT/HCPCS: 71271

== ENCOUNTER 2023-04-05 11:56 | Outpatient (CLI) | payer SELFPAY ==
[2023-04-05 15:11] LABS: Absolute Lymphocyte Count 1.23 X10^3/uL (0.83-4.51); Absolute Neutrophil Count 2.7 X10^3/uL (2.0-7.7); Basophil# 0.03 X10^3/uL; Basophil% 0.7 % (0-1); Eosinophil# 0.06 X10^3/uL; Eosinophils% 1.4 % (0-5); Hematocrit 46.2 % (37-47); Hemoglobin 14.8 g/dL (12.0-15.0); Lymphocyte # 1.23 X10^3/ul (0.83-4.51); Lymphocyte % 28.6 % (19-41); Mean Corpuscular Volume 90.4 fL (81-99); Monocyte# 0.29 X10^3/uL; Monocyte% 6.7 % (0-10); NRBC Flagged by Analyzer 0 % (0-5); Neutrophil # 2.68 X10^3/uL (2.7-7.7); Neutrophil % 62.4 % (47-70); Platelet Count 193 K/mm3 (150-450); RBC Distribution Width CV 12.2 % (11.6-14.6); RBC Distribution Width SD 40.6 fl (35.1-43.9); Red Blood Count 5.11 M/mm3 (4.2-5.4); White Blood Count 4.3 K/mm3 (4.4-11.0)
[2023-04-05 15:53] LABS: ALB/GLOB Ratio 1.1 RATIO (0.9-2.4); AST(SGOT) 17 U/L (15-37); Alanine Aminotransfer ALT/SGPT 19 U/L (13-56); Albumin, Serum 3.9 g/dL (3.2-5.0); Alkaline Phosphatase 116 U/L (45-117); Anion Gap 6 (5-15); BUN 15 mg/dL (7-18); BUN/Creat Ratio 17.8 RATIO (10-20); Calcium,Total 8.7 mg/dL (8.5-10.1); Chloride 103 mmol/L (98-107); Creatinine, Serum 0.84 mg/dL (0.55-1.02); EST Glomerular Filtration Rate 75 mL/min (>60); Est Glom Filt Rate - Afr Amer 90 mL/min (>60); Globulin 3.4 g/dL (2.2-4.2); Glucose 93 mg/dL (74-106); Potassium 3.9 mmol/L (3.5-5.1); Protein, Total 7.3 g/dL (6.4-8.2); Sodium Level 137 mmol/L (136-145)
== END 2023-04-05 23:59 | disposition home or self-care (01) ==
LOC: MFPLAB 11:56
PROVIDERS: PCP Family Medicine; Visit Provider Family Medicine
DX: R06.02 Shortness of breath (principal)
CPT/HCPCS: 36415; 80053; 84443; 85025

== ENCOUNTER → 2023-05-08 | Outpatient (CLI) | payer BC, SELFPAY ==
[2023-05-08 16:00] LABS: Thyroid Stim Hormone (TSH) 0.13 uIU/mL (0.358-3.74)
== END | disposition home or self-care (01) ==
LOC: MFPLAB 13:55
PROVIDERS: PCP Family Medicine; Visit Provider Family Medicine
DX: E03.9 Hypothyroidism, unspecified (principal)
CPT/HCPCS: 36415; 84443

== ENCOUNTER → 2023-07-31 | Outpatient (CLI) | payer SELFPAY ==
[2023-07-31 13:14] LABS: Thyroid Stim Hormone (TSH) 3.87 uIU/mL (0.358-3.74)
== END | disposition home or self-care (01) ==
LOC: MFPLAB 11:12
PROVIDERS: PCP Family Medicine; Visit Provider Family Medicine
DX: E03.9 Hypothyroidism, unspecified (principal)
CPT/HCPCS: 36415; 84443

== ENCOUNTER → 2024-02-11 | Outpatient (CLI) | payer SELFPAY ==
[2024-02-11 10:44] LABS: AST(SGOT) 16 U/L (15-37); Alanine Aminotransfer ALT/SGPT 24 U/L (13-56); Cholesterol 279 mg/dL (200); High Density Lipoprotein 84 mg/dL; Triglycerides 60 mg/dL; Very Low Density Lipoprotein 12 mg/dL (5-40)
== END | disposition home or self-care (01) ==
PROVIDERS: PCP Family Medicine; Visit Provider Family Medicine
DX: E03.9 Hypothyroidism, unspecified (principal); E78.00 Pure hypercholesterolemia, unspecified
CPT/HCPCS: 36415; 80061; 84443; 84450; 84460

== ENCOUNTER → 2024-04-04 | Outpatient (CLI) | payer SELFPAY ==
--- NOTE | 2024-04-04 13:52 | CT_ITS ---
EXAM: CT CHEST, LUNG CANCER SCREENING WITHOUT INTRAVENOUS CONTRAST CLINICAL INDICATION: abnormal x-ray-lung nodule, and lt; 1cm, mod-high risk. 2 PPD FOR 30+ YEARS TECHNIQUE: Helically acquired images were obtained of the chest without intravenous contrast using low dose (LDCT) lung cancer screening protocol. This CT exam was performed using one or more of the following dose reduction techniques: automated exposure control, adjustment of the mA and/or kV according to patient size, and/or use of iterative reconstruction technique. COMPARISON: 02/21/2023, 02/08/2022, 03/14/2019. FINDINGS: LUNGS AND PLEURAL SPACES: Granuloma in the right middle lobe. Bandlike opacity in the posterior left lower lobe is likely atelectasis or scarring. There is an unchanged 3 mm pulmonary nodule in the periphery of the left upper lobe. Left upper lobe bronchiectasis is again identified similar to the prior examination. Mild bilateral apical scarring. No pleural effusion or thickening. No pneumothorax. HEART: No significant abnormality. Heart size is normal. No pericardial effusion. No significant coronary artery calcifications. MEDIASTINUM: No significant abnormality. No mediastinal or hilar adenopathy. Esophagus is unremarkable. No hiatal hernia. THYROID: No significant abnormality. No thyroid lesions. BONES/JOINTS: No significant abnormality. No suspicious lytic or blastic abnormality. VASCULATURE: No significant abnormality. Thoracic aorta is non-dilated. LYMPH NODES: No significant abnormality. No enlarged lymph nodes. CT/Low Dose CT Lung Screening IMPRESSION: ACR Lung CT Screening Reporting And Data System (Lung-RADS) score: 2 - Benign Appearance or Behavior. Recommend continued annual screening with a low-dose CT (LDCT) in 12 months. Electronically Signed: Sunny Barrientos DO at 15:48 EST ,
== END | disposition home or self-care (01) ==
PROVIDERS: PCP Family Medicine; Referring Provider Family Medicine; Visit Provider Family Medicine
DX: Z12.2 Encounter for screening for malignant neoplasm of respiratory organs (principal); Z87.891 Personal history of nicotine dependence
CPT/HCPCS: 71271

== ENCOUNTER 2024-06-30 10:02 | Outpatient (CLI) | payer SELFPAY ==
[2024-06-30 12:42] LABS: AST(SGOT) 23 U/L (<=31); Alanine Aminotransfer ALT/SGPT 25 U/L (<=34); Cholesterol 253 mg/dL (<=200); High Density Lipoprotein 67 mg/dL; Low Density Lipoprotein Calc. 175 mg/dL; Thyroid Stim Hormone (TSH) 0.287 uIU/mL (0.300-4.200); Triglycerides 53 mg/dL; Very Low Density Lipoprotein 11 mg/dL (5-40); cholesterol:hdl ratio screen 3.76
[2024-07-01 10:33] LABS: Vitamin D,25 Hydroxy 34.2 ng/mL (30-100)
== END 2024-06-30 23:59 | disposition home or self-care (01) ==
LOC: MTLAB 10:04
PROVIDERS: PCP Family Medicine; Referring Provider Family Medicine; Visit Provider Family Medicine
DX: E78.5 Hyperlipidemia, unspecified (principal); E03.9 Hypothyroidism, unspecified; E55.9 Vitamin D deficiency, unspecified
CPT/HCPCS: 36415; 80061; 82306; 84443; 84450; 84460

== ENCOUNTER → 2024-10-28 | Outpatient (CLI) | payer SELFPAY ==
[2024-10-28 14:24] LABS: Hematocrit 44.6 % (37-47); Hemoglobin 14.6 g/dL (12.0-15.0); Immature Granulocytes Count 0.000 X10^3/uL (0.0-0.0); Mean Corp Hgb Conc 32.7 g/dL (32-36); Mean Corpuscular Volume 87.3 fL (81-99); Mean Platelet Vol. 9.5 fl (6.2-12.0); NRBC Flagged by Analyzer 0 % (0-5); Platelet Count 177 K/mm3 (150-450); RBC Distribution Width CV 12.4 % (11.6-14.6); RBC Distribution Width SD 39.8 fl (35.1-43.9); Red Blood Count 5.11 M/mm3 (4.2-5.4); White Blood Count 3.4 K/mm3 (4.4-11.0)
[2024-10-28 14:39] LABS: AST(SGOT) 21 U/L (<=31); Alanine Aminotransfer ALT/SGPT 17 U/L (<=34); Albumin, Serum 4.4 g/dL (3.5-5.0); Alkaline Phosphatase 114 U/L (35-104); Anion Gap 12 (5-15); BUN 15 mg/dL (4-19); BUN/Creat Ratio 18.6 RATIO (10-20); Calcium,Total 9.4 mg/dL (7.6-11.0); Carbon Dioxide 24.7 mmol/L (21.0-32.0); Chloride 103 mmol/L (98-108); Free T3 3.2 pg/mL (2.18-3.98); Globulin 2.6 g/dL (2.2-4.2); Glucose 97 mg/dL (70-99); Potassium 4.3 mmol/L (3.3-5.1)
--- OUTSIDE RECORDS SUMMARY | 2024-10-28 21:13 | XMS RPT_ITS | CCD ---
Author Organization [facility] Care Team Providers Care Rn Post Partum Name Role Phone Dr. Monika Conway Primary Care Provider Dr. Eric Fatima Attending Provider CHASTITY PEPE Other Provider Dr. Suhail Esparza Attending Provider Dr. Suhail Esparza Referring Provider Dr. Gato Cagle Attending Provider Dr. Monika Conway MD Primary Care Provider Dr. Monika Conway MD Attending Provider Dr. Monika Conway MD Referring Provider Monika Conway Attending Unavailable Monika Conway Primary Care Unavailable Monika Conway Attending Unavailable Monika Conway Primary Care Unavailable Monika Conway Attending Unavailable Monika Cownay Referring Unavailable Monika Conway Primary Care Unavailable Monika Conway Attending Unavailable JollMonika jones S Referring Unavailable Monika Conway Primary Care Unavailable Allergies Allergy Classification Reported Allergen(s) Allergy Type Date of Onset Reaction(s) Facility (14 sources) levoFLOXacin Drug Allergy 04-09-2015 Rash [facility] (1 source) levoFLOXacin Drug Allergy 04-09-2015 [facility] Repository Medications Current Medications Medication Drug Class(es) Dates Sig (Normalized) Sig (Original) albuterol 0.833 mg/ml / ipratropium bromide 0.167 mg/ml inhalation solution (14 sources) Anticholinergic, beta2-Adrenergic Agonist Start: 11-09-2013 take 1 mL by inhalation every six hours as needed Ipratropium-Albuter ol 3 ML solution for nebulization Active 3 mL INHALATION EVERY 6 HOURS NEEDED as needed for Shortness Of Breath November 09, 2013 12:00am Start: 11-09-2013 take 1 mL by inhalat ion every six hours as needed Ipratropium-Albuterol Active 3 ML INHALATION EVERY 6 HOURS NEEDED November 09, 2013 12:00am aspirin 81 mg delayed release oral tablet (14 sources) Platelet Aggregation Inhibitor, Nonsteroidal Anti-inflammatory Drug Start: 05-06-2014 take 1 tablet by mouth once daily Aspirin 81 MG tablet Active 81 mg PO DAILY@0800 May 06, 2014 1:00am azithromycin 500 mg oral tablet (14 sources) Macrolide Antimicrobial Start: 04-11-2015 take 1 tablet by mouth once daily Azithromycin (Zithromax) 500 MG tablet Active 500 mg PO DAILY April 11, 2015 1:00am cefpodoxime 200 mg oral tablet (14 sources) Cephalosporin Antibacterial Start: 04-11-2015 take 1 tablet by mouth every twelve hours Cefpodoxime 200 MG tablet Active 200 mg PO Q12H April 11, 2015 1:00am cholecalciferol 0.05 mg oral tablet (14 sources) Vitamin D Start: 05-06-2014 take 3 tablets by mouth once daily Cholecalciferol (Vitamin D3) (Vitamin D3) 1,000 UNIT tablet Active 3000 U PO DAILY May 06, 2014 1:00am 12 hr guaiFENesin 600 mg extended release oral tablet (14 sources) Start: 04-11-2015 Guaifenesin (Mucus Relief Er) 600 MG tablet Active 1200 mg PO TWICE A DAY April 11, 2015 1:00am metoprolol tartrate 25 mg oral tablet (14 sources) beta-Adrenergic August Start: 11-09-2013 take 1 tablet by mouth twice daily Metoprolol Tartrate 25 MG tablet Active 25 mg PO TWICE A DAY November 09, 2013 12:00am predniSONE 20 mg oral tablet (14 sources) Start: 04-11-2015 take 1 tablet by mouth twice daily Prednisone 20 MG tablet Active 20 mg PO TWICE A DAY April 11, 2015 1:00am thyroid (mcc) 180 mg oral tablet (20 sources) Start: 05-06-2014 Thyroid (Pork) ([place] Thyroid) 180 MG tablet Active 180 mg PO SA May 06, 2014 1:00am Start: 05-06-2014 Thyroid (Pork) ([place] Thyroid) 60 MG tablet Active 120 mg PO SUMOTUWETHFR May 06, 2014 1:00am vitamin e 180 mg oral capsul e (14 sources) Start: 04-09-2015 Vitamin E (Dl, Acetate) 400 UNITS capsule Active 400 U PO DAILY April 09, 2015 1:00am Problems Problem Classification Problem Date Documented Date Episodic/Chronic Cardiac dysrhythmias (14 sources) Tachyarrhythmia ; Translations: [Tachycardia, unspecified] 04-09-2015 Episodic Chronic obstructive pulmonary disease and bronchiectasis (14 sources) Chronic obstructive lung disease 04-09-2015 Chronic Disorders of lipid metabolism (1 source) Hyperlipidemia, unspecified; Translations: [Hyperlipidemia, unspecified] Onset: 07-02-2024 Chronic Heart valve disorders (14 sources) Mitral valve prolapse; Translations: [Nonrheumatic mitral (valve) prolapse] 03-31-2015 Chronic Other screening for suspected conditions (not mental disorders or infectious disease) (1 source) Encounter for screening for malignant neoplasm of respiratory organs; Translations: [Encounter for screening for malignant neoplasm of respiratory organs] Onset: 04-27-2024 Episodic Pneumonia (except that caused by tuberculosis or sexually transmitted disease) (20 sources) Haemophilus influenzae pneumonia; Translations: [Pneumonia due to Hemophilus influenzae] 04-11-2015 Episodic Comment on above: Right lower lip pneu monia Residual codes; unclassified (14 sources) Tobacco user; Translations: [Tobacco use] 04-09-2015 Episodic Thyroid disorders (15 sources) Hypothyroidism; Translations: [Hypothyroidism, unspecified] Onset: 04-23-2024 04-09-2015 Chronic Results Test Name Value Interpretation Reference Range Facility L506.1001on 07-01-2024 Vitamin D 25-OH 34.2 ng/mL Normal 30-100 [facility] Comment on above: Result Comment: Carla min D Status Deficiency: <20 ng/mL (50nmol/L) Insufficiency: 20-30 ng/mL (50-75 nmol/L) Sufficiency: 30-100 ng/mL (75-250 nmol/L) Toxicity: >100 ng/mL (>250 nmol/L) Performed By: #### L 501.9571, L501.4405, L500.4100, L501.4100 #### [facility] [address] [place], [address] AST(SGOT)on 06-30-2024 AST [Catalytic activity/Vol] 23 U/L Normal <=31 [facility] Comment on above: Performed By: #### L [id number], L500.4100, L501.4405, L501.4100 #### [facility] [address] [place], [address] Alanine Aminotransferas (SGP T)on 06-30-2024 ALT [Catalytic activity/Vol] 25 U/L Normal <=34 [facility] Comment on above: Performed By: #### L [id number], L500.4100, L501.4405, L501.4100 #### [facility] [address] [place], [address] Calculated very low density lipoprotein (VLDL) cholesterol measurementOrdered By: Monika Conway on 06-30-2024 VLDL Cholesterol 11 mg/dL 5-40 [facility] LDL calc ser/plasOrdered By: Monika Conway on 06-30-2024 LDL Cholesterol, Calculated 175 mg/dL [facility] Comment on above: Zgvpctioon=626-672 m g/dL & Higher Fise=921 mg/dL or greater Laboratory - Chemistry and C hemistry - challengeOrdered By: Monika Conway on 06-30-2024 AST [Catalytic activity/Vol] 23 U/L <32 [facility] Lipid Profileon 06-30-2024 CHOL:HDL 3.76 Normal [facility] Comment on above: Performed By: #### L [id number], L500.4100, L501.4405, L501.4100 #### [facility] [address] [place], [address] Cholesterol [Mass/Vol] 253 mg/dL High <=200 [facility] Comment on above: Result Comment: Chol esterol level, Desirable <200 mg/dL Borderline high cholesterol 200-239 mg/dL High cholesterol >=240 mg/dL Recommendations of the NCEP Adult Treatment Panel for the following risk-cutoff thresholds for the [place] population. Performed By: #### L [id number], L500.4100, L501.4405, L501.4100 #### [facility] [address] [place], [address] Cholesterol in HDL [Mass/Vol] 67 mg/dL Normal [facility] Comment on above: Result Comment: Radha onal Cholesterol Education Program (NCEP) guidelines: <40 mg/dL: Low HDL-cholesterol (major risk factor for CHD) >= 60 mg/dL: High HDL-cholesterol (negative risk factor for CHD) HDL-cholesterol is affected by a number of factors, e.g. smoking, exercise, hormones, sex and age. Performed By: #### L [id number], L500.4100, L501.4405, L501.4100 #### [facility] [address] [place], [address] Cholesterol in LDL [Mass/Vol] 175 mg/dL Normal [facility] Comment on above: Result Comment: Bord ubkbqh=156-308 mg/dL Higher Iqmz=366 mg/dL or greater Performed By: #### L [id number], L500.4100, L501.4405, L501.4100 #### [facility] [address] [place], [address] Cholesterol in VLDL [Mass/Vol] 11 mg/dL Normal 5-40 [facility] Comment on above: Performed By: #### L [id number], L500.4100, L501.4405, L501.4100 #### [facility] [address] [place], [address] Triglyceride [Mass/Vol] 53 mg/dL Normal [facility] Comment on above: Result Comment: The drugs N-Acetylcysteine and Metamizole may falsely depress this assay. Normal range: <150 mg/dL Borderline High: 150-199 mg/dL High: 200-499 mg/dL Very High: >500 mg/dL Performed By: #### L [id number], L500.4100, L501.4405, L501.4100 #### [facility] [address] [place], [address] Screening total cholesterol/ high density lipoprotein (HDL) cholesterol ratioOrdered By: Monika Conway on 06-30-2024 Cholesterol.total/Bouchra sterol in HDL [Mass ratio] 3.76 {ratio} [facility] Serum or plasma alanine anderson otransferase (ALT) measurementOrdered By: Monika Conway on 06-30-2024 ALT [Catalytic activity/Vol] 25 U/L <35 [facility] Serum or plasma cholesterol in HDL measurement (mass/volume)Ordered By: Monika Conway on 06-30-2024 Cholesterol in HDL [Mass/Vol] 67 mg/dL >40 [facility] Comment on above: National Cholesterol Education Program (NCEP) guidelines:<40 mg/dL: Low HDL-cholesterol (major risk factor for CHD)>= 60 mg/dL: High HDL-cholesterol (negative risk factor for CHD)HDL-cholesterol is affected by a number of factors, e.g. smoking, exercise, hormones, sex and age. Serum or plasma cholesterol measurement (mass/volume)Ordered By: Monika Conway on 06-30-2024 Cholesterol [Mass/Vol] 253 mg/dL High <201 [facility] Comment on above: Cholesterol level, D esirable <200 mg/dLBorderline high cholesterol 200-239 mg/dLHigh cholesterol >=240 mg/dLRecommendations of the NCEP Adult Treatment Panel for the following risk-cutoff thresholds for the [place] population. TSH DL <= 0.005 mIU/L QnOrde red By: Monika Conway on 06-30-2024 Thyroid Stimulating Hormone (TSH) 0.287 uIU/mL Low 0.300-4.200 [facility] Thyroid Stim Hormone (TSH)on 06-30-2024 TSH 0.287 uIU/mL Low 0.300-4.200 [facility] Comment on above: Performed By: #### L [id number], L500.4100, L501.4405, L501.4100 #### [facility] [address] [place], [place], [address] Triglycerides measurementOrd ered By: Monika Conway on 06-30-2024 Triglyceride [Mass/Vol] 53 mg/dL <199 [facility] Comment on above: The drugs N-Acetylcy steine and Metamizole may falsely depress this assay. Normal range: <150 mg/dLBorderline High: 150-199 mg/dLHigh: 200-499 mg/dLVery High: >500 mg/dL Vitamin D, 25-hydroxyOrdered By: Monika Conway on 06-30-2024 Vitamin D 25-Hydroxy 34.2 ng/mL 30-100 [facility] Comment on above: Vitamin D StatusDefi ciency: <20 ng/mL (50nmol/L)Insufficiency: 20-30 ng/mL (50-75 nmol/L)Sufficiency: 30-100 ng/mL (75-250 nmol/L)Toxicity: >100 ng/mL (>250 nmol/L) Low Dose CT Lung Screeningon 04-04-[address] Lung Screening [facility] [address] [place], [place] [address] Low Dose CT Lung Screening MR#: [id number] Acct: [id number] Name: JODEE MORALEZ Rep #: [id number] : [id number] F [id number] From: Sunny espinal DO PCP: Dr. Monika Conway MD Status: [facility] Study: Low Dose CT Lung Screening Date of Exam: 04/04 Exam# [id number] Ordering Dr: Monika Conway MD [id number] EXAM: CT CHEST, LUNG CANCER SCREENING WITHOUT INTRAVENOUS CONTRAST CLINICAL INDICATION: abnormal x-ray-lung nodule, and lt; 1cm, mod-high risk. 2 PPD FOR 30+ YEARS TECHNIQUE: Helically acquired images were obtained of the chest without intravenous contrast using low dose (LDCT) lung cancer screening protocol. This CT exam was performed using one or more of the following dose reduction techniques: automated exposure control, adjustment of the mA and/or kV according to patient size, and/or use of iterative reconstruction technique. COMPARISON: 02/21/2023, 02/08/2022, 03/14/2019. FINDINGS: LUNGS AND PLEURAL SPACES: Granuloma in the right middle lobe. Bandlike opacity in the posterior left lower lobe is likely atelectasis or scarring. There is an unchanged 3 mm pulmonary nodule in the periphery of the left upper lobe. Left upper lobe bronchiectasis is again identified similar to the prior examination. Mild bilateral apical scarring. No pleural effusion or thickening. No pneumothorax. HEART: No significant abnormality. Heart size is normal. No pericardial effusion. No significant coronary artery calcifications. MEDIASTINUM: No significant abnormality. No mediastinal or hilar adenopathy. Esophagus is unremarkable. No hiatal hernia. THYROID: No significant abnormality. No thyroid lesions. BONES/JOINTS: No significant abnormality. No suspicious lytic or blastic abnormality. VASCULATURE: No significant abnormality. Thoracic aorta is non-dilated. LYMPH NODES: No significant abnormality. No enlarged lymph nodes. CT/Low Dose CT Lung Screening IMPRESSION: ACR Lung CT Screening Reporting And Data System (Lung-RADS) score: 2 - Benign Appearance or Behavior. Recommend continued annual screening with a low-dose CT (LDCT) in 12 months. Electronically Signed: Sunny Barrientos DO at 15:48 EST , CC: Dr. Monika Conway MD Patient Information Coordinator: Signed Normal [facility] AST(SGOT)on 02-11-2024 AST [Catalytic activity/Vol] 16 U/L Normal 15-37 [facility] Comment on above: Performed By: #### L [id number], L501.4405, L500.4100, L501.4100 #### [facility] [place], [address] Alanine Aminotransferas (SGP T)on 02-11-2024 ALT [Catalytic activity/Vol] 24 U/L Normal 13-56 [facility] Comment on above: Performed By: #### L [id number], L501.4405, L500.4100, L501.4100 #### [facility] [address] [place], [address] Lipid Profileon 02-11-2024 Cholesterol [Mass/Vol] 279 mg/dL High 200 [facility] Comment on above: Result Comment: <200 mg/dL Desirable 200-240 mg/dL Borderline >240 mg/dL High Risk Performed By: #### L 501.9520, L501.4405, L500.4100, L501.4100 #### [facility] [address] [place], [address] Cholesterol in HDL [Mass/Vol] 84 mg/dL Normal [facility] Comment on above: Result Comment: The drugs N-Acetylcysteine and Metamizole may falsely depress this assay. Reference Range HDL <40 mg/dL Low HDL Cholesterol HDL >or= 60 mg/dL High HDL Cholesterol Performed By: #### L 501.9520, L501.4405, L500.4100, L501.4100 #### [facility] [address] [place], [address] Cholesterol in LDL [Mass/Vol] 183 mg/dL High 0-130 [facility] Comment on above: Performed By: #### L 501.9520, L501.4405, L500.4100, L501.4100 #### [facility] [address] [place], [address] Cholesterol in VLDL [Mass/Vol] 12 mg/dL Normal 5-40 [facility] Comment on above: Performed By: #### L 501.9520, L501.4405, L500.4100, L501.4100 #### [facility] [address] [place], [address] Triglyceride [Mass/Vol] 60 mg/dL Normal [facility] Comment on above: Result Comment: The drugs N-Acetylcysteine and Metamizole may falsely depress this assay. Serum Triglycerides Reference Interval Normal <150 mg/dL Borderline high 150 - 199 mg/dL High 200 - 499 mg/dL Very High > or = 500 mg/dL Performed By: #### L 501.9520, L501.4405, L500.4100, L501.4100 #### [facility] [address] [place], [address] Thyroid Stim Hormone (TSH)on 02-11-2024 TSH 11.700 uIU/mL High 0.358-3.740 [facility] Comment on above: Performed By: #### L 501.9520, L501.4405, L500.4100, L501.4100 #### [facility] [address] [place], [address] Serum or plasma thyroid stim ulating hormone (TSH) measurement (units/volume)Ordered By: Monika Conway on 07-31-2023 TSH Qn 3.87 uIU/mL 0.358-3.74 [facility] Thyroid Stim Hormone (TSH)on 07-31-2023 TSH 3.87 uIU/mL High 0.358-3.74 [facility] Comment on above: Order Comment: Order Date: 05/11/23 Order Info: [id number] - TSH Comments: hypothyroidism Performed By: #### L 501.9520 #### [facility] [address] [place], [place], [id number] Serum or plasma thyroid stim ulating hormone (TSH) measurement (units/volume)Ordered By: Monika Conway on 05-08-2023 TSH Qn 0.13 uIU/mL 0.358-3.74 [facility] Absolute lymphocyte countOrd ered By: Monika Conway on 04-05-2023 Lymphocytes Auto (Unsp spec) [#/Vol] 1.23 10*3/uL 0.83-4.51 [facility] Basophil percentageOrdered B y: Monika Conway on 04-05-2023 Basophils/100 WBC (Bld) 0.7 % 0-1 [facility] Bilirubin [Mass/Vol] 0.60 mg/dL 0.20-1.00 [facility] Comment on above: For patients on eltr ombopag therapy, use of Dimension [place] TBIL is not recommended. Chloride [Moles/Vol] 103 mmol/L 98-107 [facility] Eosinophils/100 WBC (Bld) 1.4 % 0-5 [facility] Glucose [Mass/Vol] 93 mg/dL 74-106 [facility] Neutrophils (Bld) [#/Vol] 2.7 10*3/uL 2.0-7.7 [facility] Neutrophils/100 WBC (Bld) 62.4 % 47-70 [facility] Potassium [Moles/Vol] 3.9 mmol/L 3.5-5.1 [facility] Protein [Mass/Vol] 7.3 g/dL 6.4-8.2 [facility] Sodium [Moles/Vol] 137 mmol/L 136-145 [facility] WBC (Bld) [#/Vol] 4.3 10*3/uL 4.4-11.0 [facility] Blood erythrocytes count (nu mber/volume)Ordered By: Monika Conway on 04-05-2023 RBC (Bld) [#/Vol] 5.11 10*6/uL 4.2-5.4 [facility] Blood hemoglobin measurement (mass/volume)Ordered By: Monika Conway on 04-05-2023 Hemoglobin (Bld) [Mass/Vol] 14.8 g/dL 12.0-15.0 [facility] Blood lymphocytes/100 leukoc ytesOrdered By: Monika Conway on 04-05-2023 Lymphocytes/100 WBC (Bld) 28.6 % 19-41 [facility] Blood monocytes/100 leukocyt esOrdered By: Monika Conway on 04-05-2023 Monocytes/100 WBC (Bld) 6.7 % 0-10 [facility] Blood platelet mean volumeOr dered By: Monika Conway on 04-05-2023 Platelet mean volume (Bld) [Entitic vol] 9.0 fL 6.2-12.0 [facility] Determination of erythrocyte mean corpuscular volume (MCV)Ordered By: Monika Conway on 04-05-2023 MCV (RBC) [Entitic vol] 90.4 fL 81-99 [facility] Hematocrit Auto (Bld) [Volum e fraction]Ordered By: Monika Conway on 04-05-2023 Hematocrit (Bld) [Volume fraction] 46.2 % 37-47 [facility] Laboratory - Chemistry and C hemistry - challengeOrdered By: Monika Conway on 04-05-2023 ALP [Catalytic activity/Vol] 116 U/L 45-117 [facility] ALT [Catalytic activity/Vol] 19 U/L 13-56 [facility] CO2 [Moles/Vol] 28.0 mmol/L 21.0-32.0 [facility] Globulin (S) [Mass/Vol] 3.4 g/dL 2.2-4.2 [facility] Urea nitrogen/Creatinine [Mass ratio] 17.8 mg/mg 10-20 [facility] Laboratory - Hematology and Cell countsOrdered By: Monika Conway on 04-05-2023 Erythrocyte distribution width (RBC) [Entitic vol] 40.6 fL 35.1-43.9 [facility] Erythrocyte distribution width (RBC) [Ratio] 12.2 % 11.6-14.6 [facility] Immature granulocytes/100 WBC (Bld) 0.200 % 0.0-0.9 [facility] Comment on above: IG% - Immature Granu locytes (promyelocytes, myelocytes and metamyelocytes) > 1% indicates that a LEFT SHIFT is Present. MCH (RBC) [Entitic mass] 29.0 pg 27.0-32.0 [facility] Nucleated RBC/100 WBC (Bld) [Ratio] 0 % 0-5 [facility] MCHC Auto (RBC) [Mass/Vol]Or dered By: Monika Conway on 04-05-2023 MCHC (RBC) [Mass/Vol] 32.0 g/dL 32-36 [facility] No Panel InformationOrdered By: Monika Conway on 04-05-2023 Estimated GFR (MDRD) Amer 90 mL/min >60 [facility] Comment on above: GFR Calc Estimated GFR (MDRD) Non-Af Amer 75 mL/min >60 [facility] Comment on above: Non- GFR Calc Thyroid Stimulating Hormone (TSH) 33.70 uIU/mL 0.358-3.74 [facility] Platelets bldOrdered By: Monika Conway on 04-05-2023 Platelets (Bld) [#/Vol] 193 10*3/uL 150-450 [facility] Serum or plasma albumin laci urement (mass/volume)Ordered By: Monika Conway on 04-05-2023 Albumin [Mass/Vol] 3.9 g/dL 3.2-5.0 [facility] Serum or plasma albumin/glob ulin mass ratioOrdered By: Monika Conway on 04-05-2023 Albumin/Globulin [Mass ratio] 1.1 {ratio} 0.9-2.4 [facility] Serum or plasma calcium laci urement (mass/volume)Ordered By: Monika Conway on 04-05-2023 Calcium [Mass/Vol] 8.7 mg/dL 8.5-10.1 [facility] Serum or plasma creatinine m easurement (mass/volume)Ordered By: Monika Conway on 04-05-2023 Creatinine [Mass/Vol] 0.84 mg/dL 0.55-1.02 [facility] Comment on above: The validity of the calculated GFR & GFRAA in patients over 70 years has not been determined. Clinical correlation is essential. Serum or plasma urea nitroge n measurement (mass/volume)Ordered By: Monika Conway on 04-05-2023 Urea nitrogen [Mass/Vol] 15 mg/dL 7-18 [facility] Thin prep Papanicolaou smear with manual screeningOrdered By: Monika Conway on 04-05-2023 Thin prep Papanicolaou smear with manual screening 17 U/L 15-37 [facility] Thin prep Papanicolaou smear with manual screening 6 5-15 [facility] Basophil percentageOrdered B y: Monika Conway on 02-09-2023 Bilirubin [Mass/Vol] 1.00 mg/dL 0.20-1.00 [facility] Comment on above: For patients on eltr ombopag therapy, use of Dimension [place] TBIL is not recommended. Chloride [Moles/Vol] 103 mmol/L 98-107 [facility] Cholesterol [Mass/Vol] 207 mg/dL <200 [facility] Comment on above: <200 mg/dL Desirable 200-240 mg/dL Borderline >240 mg/dL High Risk Glucose [Mass/Vol] 91 mg/dL 74-106 [facility] Potassium [Moles/Vol] 4.0 mmol/L 3.5-5.1 [facility] Protein [Mass/Vol] 7.3 g/dL 6.4-8.2 [facility] Sodium [Moles/Vol] 138 mmol/L 136-145 [facility] Triglyceride [Mass/Vol] 70 mg/dL <199 [facility] Comment on above: The drugs N-Acetylcy steine and Metamizole may falsely depress this assay.Serum Triglycerides Reference Interval Normal <150 mg/dL Borderline high 150 - 199 mg/dL High 200 - 499 mg/dL Very High > or = 500 mg/dL Laboratory - Chemistry and C hemistry - challengeOrdered By: Monika Conway on 02-09-2023 ALP [Catalytic activity/Vol] 98 U/L 45-117 [facility] ALT [Catalytic activity/Vol] 28 U/L 13-56 [facility] CO2 [Moles/Vol] 27.0 mmol/L 21.0-32.0 [facility] Globulin (S) [Mass/Vol] 3.3 g/dL 2.2-4.2 [facility] T4 [Mass/Vol] 12.5 ug/dL 4.8-13.9 [facility] Urea nitrogen/Creatinine [Mass ratio] 14.4 mg/mg 10-20 [facility] No Panel InformationOrdered By: Monika Conway on 02-09-2023 Estimated GFR (MDRD) Amer 101 mL/min >60 [facility] Comment on above: GFR Calc Estimated GFR (MDRD) Non-Af Amer 83 mL/min >60 [facility] Comment on above: Non- GFR Calc Thyroid Stimulating Hormone (TSH) 3.74 uIU/mL 0.358-3.74 [facility] Serum or plasma albumin laci urement (mass/volume)Ordered By: Monika Conway on 02-09-2023 Albumin [Mass/Vol] 4.0 g/dL 3.2-5.0 [facility] Serum or plasma albumin/glob ulin mass ratioOrdered By: Monika Conway on 02-09-2023 Albumin/Globulin [Mass ratio] 1.2 {ratio} 0.9-2.4 [facility] Serum or plasma calcium laci urement (mass/volume)Ordered By: Monika Conway on 02-09-2023 Calcium [Mass/Vol] 9.0 mg/dL 8.5-10.1 [facility] Serum or plasma cholesterol in HDL measurement (mass/volume)Ordered By: Monika Conway on 02-09-2023 Cholesterol in HDL [Mass/Vol] 63 mg/dL >40 [facility] Comment on above: The drugs N-Acetylcy steine and Metamizole may falsely depress this assay. Reference Range HDL <40 mg/dL Low HDL Cholesterol HDL >or= 60 mg/dL High HDL Cholesterol Serum or plasma cholesterol in VLDL measurement (mass/volume)Ordered By: Monika Conway on 02-09-2023 Cholesterol in VLDL [Mass/Vol] 14 mg/dL 5-40 [facility] Serum or plasma creatinine m easurement (mass/volume)Ordered By: Monika Conway on 02-09-2023 Creatinine [Mass/Vol] 0.76 mg/dL 0.55-1.02 [facility] Comment on above: The validity of the calculated GFR & GFRAA in patients over 70 years has not been determined. Clinical correlation is essential. Serum or plasma low density lipoprotein (LDL) cholesterol measurement (mass/volume)Ordered By: Monika Conway on 02-09-2023 Cholesterol in LDL [Mass/Vol] 130 mg/dL 0-130 [facility] Serum or plasma urea nitroge n measurement (mass/volume)Ordered By: Monika Conway on 02-09-2023 Urea nitrogen [Mass/Vol] 11 mg/dL 7-18 [facility] Thin prep Papanicolaou smear with manual screeningOrdered By: Monika Conway on 02-09-2023 Thin prep Papanicolaou smear with manual screening 26 U/L 15-37 [facility] Thin prep Papanicolaou smear with manual screening 8 5-15 [facility] No Panel InformationOrdered By: Dr. Conway on 02-01-2022 Thyroid Stimulating Hormone (TSH) 0.33 uIU/mL 0.358-3.74 [facility] Cervical or vagninal specime n microscopic examination by cytology stain (reported ason 10-05-2021 Cytology report Cyto stain Doc (Cvx/Vag) Comment . [facility] Work Phone: Comment on above: The Pap smear is a s creening test designed to aid in thedetection of premalignant and malignant conditions of theuterine cervix. It is not a diagnostic procedure andshould not be used as the sole means of detecting cervicalcancer. Both false-positive and false-negative reports dooccur. Detection in cervical specim en of any of human papilloma virus (HPV) 16, 18, 31, 33,on 10-05-2021 HPV 16+18+31+33+35+39+45+51 +52+56+58+59+68 DNA Probe+sig amp Ql (Cvx) Negative [facility] Work Phone: Laboratory - Cytologyon [employer] Cyto stain Nom (Cvx/Vag) [ID] Comment . [facility] Work Phone: Comment on above: Aida Chen, [employer] Lather (ASCP) Laboratory - Miscellaneous t estson 10-05-2021 Service comment (Unsp spec) [Interp] Comment . [facility] Work Phone: Comment on above: This liquid based Th inPrep(R) pap test was screened withthe use of an image guided system. Service comment (Unsp spec) [Interp] . . [facility] Work Phone: No Panel Informationon 10-05 Pathology report final diagnosis Narrative Comment . [facility] Work Phone: Comment on above: NEGATIVE FOR INTRAEP ITHELIAL LESION OR MALIGNANCY. Absolute lymphocyte counton 10-04-2021 Lymphocytes Auto (Unsp spec) [#/Vol] 1.19 10*3/uL 0.83-4.51 [facility] Work Phone: Basophil percentageon 2021 Basophils/100 WBC (Bld) 0.9 % 0-1 [facility] Work Phone: Cholesterol [Mass/Vol] 252 mg/dL <200 [facility] Work Phone: Comment on above: <200 mg/dL Desirable 200-240 mg/dL Borderline >240 mg/dL High Risk Eosinophils/100 WBC (Bld) 2.7 % 0-5 [facility] Work Phone: Neutrophils (Bld) [#/Vol] 1.8 10*3/uL 2.0-7.7 [facility] Work Phone: Neutrophils/100 WBC (Bld) 53.4 % 47-70 [facility] Work Phone: Triglyceride [Mass/Vol] 65 mg/dL <199 [facility] Work Phone: Comment on above: The drugs N-Acetylcy steine and Metamizole may falsely depress this assay.Serum Triglycerides Reference Interval Normal <150 mg/dL Borderline high 150 - 199 mg/dL High 200 - 499 mg/dL Very High > or = 500 mg/dL WBC (Bld) [#/Vol] 3.4 10*3/uL 4.4-11.0 [facility] Work Phone: Blood erythrocytes count (nu mber/volume)on 10-04-2021 RBC (Bld) [#/Vol] 5.10 10*6/uL 4.2-5.4 [facility] Work Phone: Blood hemoglobin measurement (mass/volume)on 10-04-2021 Hemoglobin (Bld) [Mass/Vol] 14.7 g/dL 12.0-15.0 [facility] Work Phone: Blood lymphocytes/100 leukoc yteson 10-04-2021 Lymphocytes/100 WBC (Bld) 35.3 % 19-41 [facility] Work Phone: Blood monocytes/100 leukocyt eson 10-04-2021 Monocytes/100 WBC (Bld) 7.7 % 0-10 [facility] Work Phone: Blood platelet mean volumeon 10-04-2021 Platelet mean volume (Bld) [Entitic vol] 9.3 fL 6.2-12.0 [facility] Work Phone: Determination of erythrocyte mean corpuscular volume (MCV)on 10-04-2021 MCV (RBC) [Entitic vol] 86.9 fL 81-99 [facility] Work Phone: Hematocrit Auto (Bld) [Volum e fraction]on 10-04-2021 Hematocrit (Bld) [Volume fraction] 44.3 % 37-47 [facility] Work Phone: Laboratory - Chemistry and C hemistry - challengeon 10-04-2021 ALT [Catalytic activity/Vol] 43 U/L 13-56 [facility] Work Phone: T4 [Mass/Vol] 10.8 ug/dL 4.8-13.9 [facility] Work Phone: Laboratory - Hematology and Cell countson 10-04-2021 Erythrocyte distribution width (RBC) [Entitic vol] 39.8 fL 35.1-43.9 [facility] Work Phone: Erythrocyte distribution width (RBC) [Ratio] 12.6 % 11.6-14.6 [facility] Work Phone: Immature granulocytes/100 WBC (Bld) 0.000 % 0.0-0.9 [facility] Work Phone: Comment on above: IG% - Immature Granu locytes (promyelocytes, myelocytes and metamyelocytes) > 1% indicates that a LEFT SHIFT is Present. MCH (RBC) [Entitic mass] 28.8 pg 27.0-32.0 [facility] Work Phone: Nucleated RBC/100 WBC (Bld) [Ratio] 0 % 0-5 [facility] Work Phone: MCHC Auto (RBC) [Mass/Vol]on 10-04-2021 MCHC (RBC) [Mass/Vol] 33.2 g/dL 32-[facility] Work [facility]: No Panel Informationon 10-04 Thyroid Stimulating Hormone (TSH) 5.81 uIU/mL 0.358-3.74 [facility] Work Phone: Platelets bldon 10-04-2021 Platelets (Bld) [#/Vol] 175 10*3/uL 150-450 [facility] Work Phone: Serum or plasma cholesterol in HDL measurement (mass/volume)on 10-04-2021 Cholesterol in HDL [Mass/Vol] 63 mg/dL >40 [facility] Work Phone: Comment on above: The drugs N-Acetylcy steine and Metamizole may falsely depress this assay. Reference Range HDL <40 mg/dL Low HDL Cholesterol HDL >or= 60 mg/dL High HDL Cholesterol Serum or plasma cholesterol in VLDL measurement (mass/volume)on 10-04-2021 Cholesterol in VLDL [Mass/Vol] 13 mg/dL 5-40 [facility] Work Phone: Serum or plasma low density lipoprotein (LDL) cholesterol measurement (mass/volume)on 10-04-2021 Cholesterol in LDL [Mass/Vol] 176 mg/dL 0-130 [facility] Work Phone: Thin prep Papanicolaou smear with manual screeningon 10-04-2021 Thin prep Papanicolaou smear with manual screening 52 U/L 15-37 [facility] Work Phone: Encounters Encounter Date Encounter Type Care Provider Facility Start: 06-30-2024 End: 06-30-[address] Monika Conway MD Work Phone: [facility] Work Phone: Start: 06-30-2024 End: 06-30-[address] Monika Conway MD -Laboratory, [place] Work Phone: Start: 06-30-2024 End: 06-30-2024 ambulatory Monika Conway Facility:[facility] Start: 04-04-2024 End: 04-04-[address] Monika Conway MD -Cat Scan, [facility] Work Phone: Start: 04-04-2024 End: 04-04-2024 ambulatory Monika Conway Facility:[facility] Start: 02-11-2024 End: 02-11-2024 ambulatory Monika Conway Facility:[facility] Start: 07-31-2023 End: 07-31-2023 ambulatory [facility] Work Phone: Start: 07-31-2023 End: 07-31-2023 Patient encounter procedure [facility] Start: 07-31-2023 End: 07-31-2023 ambulatory Monika oCnway Facility:[facility] Start: 05-08-2023 End: 05-08-2023 Patient encounter procedure [facility] Start: 04-05-2023 End: 04-05-2023 ambulatory [facility] Work Phone: Start: 04-05-2023 End: 04-05-2023 Patient encounter procedure [facility] Start: 02-21-2023 End: 02-21-2023 ambulatory [facility] Work Phone: Start: 02-21-2023 End: 02-21-2023 [facility] Start: 02-09-2023 End: 02-09-2023 Patient encounter procedure [facility] Start: 05-24-2022 End: 05-24-[address] Monika Conway Work Phone: [facility] Work Phone: Start: 05-24-2022 End: 05-24-[address] Monika Conway Work Phone: [facility] Start: 05-05-2022 End: 05-05-[address] Monika Conway Work Phone: [facility] Work Phone: Start: 05-05-2022 End: 05-05-[address] Monika Conway Work Phone: [facility] Start: 03-13-2022 Non-patient / Non-visit Dr. Steve Conway Work Phone: [facility] Start: 03-10-2022 Non-patient / Non-visit Dr. Steve Conway Work Phone: [facility] Start: 03-10-2022 End: 03-10-[address] Monika Conway Work Phone: [facility] Work Phone: Start: 03-10-2022 End: 03-10-[address] Monika Conway Work Phone: [facility]-Cardiovascula r Services Start: 02-28-2022 Non-patient / Non-visit Dr. Steve Conway Work Phone: [facility] Start: 02-28-2022 End: 02-28-[address] Monika Conway Work Phone: [facility] Work Phone: Start: 02-28-2022 End: 02-28-[address] Monika Conway [facility] Start: 02-08-2022 End: 02-08-2022 ambulatory [facility] Work Phone: Start: 02-08-2022 End: 02-08-2022 Patient encounter procedure [facility] Start: 02-01-2022 End: 02-01-2022 ambulatory [facility] Work Phone: Start: 02-01-2022 End: 02-01-2022 Patient encounter procedure [facility] Start: 10-26-2021 End: 10-26-2021 Patient encounter procedure [facility]-Outpatient Breast Imaging Start: 10-13-2021 End: 10-13-2021 [facility] Start: 10-05-2021 End: 10-05-2021 Patient encounter procedure [facility]-Laboratory, Specimen Start: 10-04-2021 End: 10-04-2021 [facility] Procedures Date Procedure Procedure Detail Performing Clinician Start: 04-04-[address] Monika kelley MD Work Phone: Start: 02-21-2023 CT of chest Start: 05-05-2022 CT of soft tissues o f neck with contrast Dr. Monika Conway Work Phone: Start: 02-08-2022 CT of chest Start: 02-01-2022 Plain chest X-ray Start: 10-26-2021 Screening mammography Start: 10-13-2021 Plain x-ray of pelvi s and lower extremity Start: 10-13-2021 X-ray of lumbosacral spine Plan of Treatment Date Care Activity Detail Author Human papilloma viru s 16+18+31+33+35+39+45+51+52+56+58+59+68 DNA [Presence] in Cervix by Probe with signal amplification [facility] Work Phone: Path report.final Dx Spec [facility] Work Phone: Immunizations Immunization Date Immunization Notes Care Provider Phuong oro 12-31-2013 Influenza virus vaccine [facility] Payers Date Payer Category Payer Unknown [id number] 2023 Self-pay [id number] Unknown [id number] Unknown [id number] Unknown [id number] Unknown [id number] Unknown [id number] Social History Date Type Detail Facility Start: 04-11-2015 End: 04-11-2015 Tobacco smoking status NHIS Unknown if ever smoked [facility] Start: 10-04-2021 None [facility] Start: 10-04-2021 Homeless [facility] Start: 10-04-2021 Cigarettes [facility] Start: 1965 Sex Assigned At Female [facility] Start: 04-11-2015 Tobacco smoking stat us [facility] Current Light tobacco smoker [facility] Start: 07-02-2024 Sex Female (finding) [facility] Clinical Note 10-05-2021 Note Date & Type Note Facility 10-05-2021 Note [facility] Work Phone: Pap Smear Specimen Adequacy October 05, 2021 12:00pm Comment . Satisfactory for evaluation. Endocervical and/or squamous metaplasticcells (endocervical component) are present. Comment on above: Satisfactory for amrik luation. Endocervical and/or squamous metaplasticcells (endocervical component) are present. Clinical Note 10-05-2021 Note Date & Type Note Facility 10-05-2021 Note [facility] Work Phone: Pap Smear Specimen Adequacy October 05, 2021 12:00pm Comment . Satisfactory for evaluation. Endocervical and/or squamous metaplasticcells (endocervical component) are present. Comment on above: Satisfactory for amrik luation. Endocervical and/or squamous metaplasticcells (endocervical component) are present. Evaluation note Note Date & Type Note Facility Evaluation note No assessment information availa ble [facility] Work Phone: Reason for referral (narrative) Note Date & Type Note Facility Reason for referral (narrative) No reason for referral information available [facility] Work Phone: Chief Complaint and Reason for Visit Chief Complaint 212.4 Chief Complaint 212.4 SCREENING Chief Complaint SCREENING SCREENING FOR LUNG CANCER Chief Complaint SCREENING FOR LUNG C ANCER SOB Chief Complaint SCREENING FOR LUNG C ANCER SOB COPD SOB COPD SOB COPD SOB Chief Complaint SCREENING FOR LUNG C ANCER SOB COPD SOB COPD SOB COPD SOB NECK MASS Chief Complaint SCREENING FOR LUNG C ANCER SOB COPD SOB COPD SOB COPD SOB NECK MASS NECK MASS-FNA MIDLINE NECK MASS Chief Complaint NICOTINE DEP Chief Complaint Admit Date LUNG NODULE ABNORMAL XRAY April 04 025 1:42pm FASTING June 30, 2024 10: 02am Family History No Family History Records Found Relationship Condition Age at Onset Recorded Date/T fiorella Unknown Family History?- Unknown April 7:18am Family History?- Unknown April 7:18am Relationship Condition Age at Onset Recorded Date/T fiorella Unknown Family History?- Unknown April 6:18am Family History?- Unknown April 6:18am Advance Directives No Advanced Directives Records Found Advance Directive Response Recorded Date/ Time Advance Directives No April 09, 2015 4:59am Living Will No April 09 6 4:59am Power of Educational Resource Coordinator No April 09 2 016 4:59am Advance Directive Response Recorded Date/ Time Advance Directives No April 09, 2015 3:59am Living Will No April 09 6 3:59am Power of Educational Resource Coordinator No April 09 2 016 3:59am Advance Directive Response Recorded Date/ Time Advance Directives No April 09, 2015 4:59am Summary Purpose Additional Source Comments Goals (unrecognized section and content) Goals may be documented in a n alternate sectionGoals may be documented in an alternate sectionGoals may be documented in an alternate sectionGoals may be documented in an alternate sectionGoals may be documented in an alternate sectionGoals may be documented in an alternate sectionGoals may be documented in an alternate sectionGoals may be documented in an alternate sectionGoals may be documented in an alternate sectionGoals may be documented in an alternate sectionGoals may be documented in an alternate sectionGoals may be documented in an alternate sectionGoals may be documented in an alternate sectionGoals may be documented in an alternate section Care Teams (unrecognized sec tion and content) Team Status: Active Member Role Status Dates Dr. Monika Conway MD Family Provider Active Dr. Monika Conway MD Primary Care Provider Active Team Status: Active Member Role Status Dates Dr. Monika Conway MD Primary Care Provider Active Dr. Eric Fatima MD Attending Provider Active Team Status: Active Member Role Status Dates Dr. Monika Conway MD Primary Care Provider Active [facility] Other Provider Active Dr. Suhail Esparza MD Attending Provider, Referring Pr ovider Active Team Status: Active Member Role Status Dates Dr. Monika Conway MD Primary Care Provider Active [facility] Other Provider Active Dr. Gato Cagle MD Attending Provider Activ e Team Status: Inactive Member Role Status Dates Dr. Monika Conway MD Primary Care Prov ider, Attending Provider, Referring Provider Active Team Status: Inactive Member Role Status Dates Dr. Monika Conway MD Primary Care Provider Active [facility] Attending Provider Active Team Status: Inactive Member Role Status Dates Dr. Monika Conway MD Primary Care Provider Active Dr. Rusty Hampton MD Attending Provider Activ e Team Status: Inactive Member Role Status Dates Dr. Monika Conway MD Primary Care Provider Active Dr. Rusty Hampton MD Attending Provider, Refe rring Provider Active Team Status: Inactive Member Role Status Dates Dr. Monika Conway MD Primary Care Provider, Attendin g Provider Active Team Status: Inactive Member Role Status Dates Dr. Monika Conway MD Primary Care Provider Active Start: April 04, 2024 End: April 04, 2024 Dr. Monika Conway MD Attending Provider Active Start: April 04, 2024 End: April 04, 2024 Dr. Monika Conway MD Referring Provider Active Start: April 04, 2024 End: April 04, 2024 Team Status: Inactive Member Role Status Dates Dr. Monika Conway MD Primary Care Provider Active Start: June 30, 2024 End: June 30, 2024 Dr. Monika Conway MD Attending Provider Active Start: June 30, 2024 End: June 30, 2024 Dr. Monika Conway MD Referring Provider Active Start: June 30, 2024 End: June 30, 2024 INFORMATION SOURCE (unrecogn ized section and content) DATE CREATED AUTHOR 07/02/2024 [facility] FOR RECORDS PERTAINING TO PATIENTS WHO ARE OR HAVE BEEN ENROLLED IN A CHEMICAL DEPENDENCY/SUBSTANCEABUSE PROGRAM, SOME INFORMATION MAY BE OMITTED. This clinical summary was aggregated from multiple sources. Caution should be exercised in using it in the provision of clinical care. This summary normalizes information from multiple sources, and as a consequence, information in this document may materially change the coding, format and clinical context of patient data. In addition, data may be omitted in some cases. CLINICAL DECISIONS SHOULD BE BASED ON THE PRIMARY CLINICAL RECORDS. [facility]. provides no warranty or guarantee of the accuracy or completeness of information in this document.
== END | disposition home or self-care (01) ==
LOC: MFPLAB 09:51
PROVIDERS: PCP Family Medicine; Referring Provider Family Medicine; Visit Provider Family Medicine
DX: E03.9 Hypothyroidism, unspecified (principal); R06.02 Shortness of breath
CPT/HCPCS: 36415; 80053; 84439; 84443; 84481; 85025

== ENCOUNTER → 2024-12-12 | Outpatient (CLI) | payer SELFPAY | END | disposition home or self-care (01) | LOC: MTLAB 09:34 | PROVIDERS: PCP Family Medicine; Referring Provider Internal Medicine Pulmonary Disease; Visit Provider Internal Medicine Pulmonary Disease | DX: J44.9 Chronic obstructive pulmonary disease, unspecified (principal) | CPT/HCPCS: 87070; 87205 ==

== ENCOUNTER → 2024-12-25 | Outpatient (CLI) | payer SELFPAY ==
--- NOTE | 2024-12-25 16:43 | RAD_ITS ---
PROCEDURE: ACUTE ABDOMEN INC CHEST 12/25/2024 REASON FOR EXAM: DIARRHEA TECHNIQUE: Procedure Code: RADABDCA Modality: DX Procedure: Four view ACUTE ABDOMEN INC CHEST COMPARISON: Chest x-ray of 02/01/2022. RAD/Acute Abdomen Inc Chest IMPRESSION: Weat-bl-dfcsdmar degenerative changes of the spine are seen, along thoracolumba r dextro rotoscoliosis. Sacroiliac joints appear within normal range. The bowel-gas pattern is unremarkable. No excess stool burden is seen. No mass or mass effect is noted. Moderate asymmetric left hip joint degenerative changes are seen. No evidence of femoral head osteonecrosis. Lungs are hyperinflated, with increased interstitial markings suggestive of chr onic lung disease. No acute pneumonic process is noted. No pleural effusion or pneumothorax is seen. The cardiomediastinal silhouette is within the normal range for age. No acute osseous change is seen. Reading Location: [id number]
--- OUTSIDE RECORDS SUMMARY | 2024-12-25 17:39 | XMS RPT_ITS | CCD ---
Author Organization [facility] Care Team Providers Care Detention Officer Name Role Phone Dr. Monika Conway Primary Care Provider Dr. Eric Fatima Attending Provider CHASTITY PEPE Other Provider Dr. Suhail Esparza Attending Provider Dr. Suhail Esparza Referring Provider [phone] Gato Cagle Attending Provider [phone] Dr. Monika Conway MD Primary Care Provider [phone] Zoraida MITCHELL, Dr. Monika Terry Attending Provider [phone] Zoraida MITCHELL, Dr. Monika Terry Referring Provider Yoana MITCHELL, Dr. Reyes Primary Care Provider [phone] Yoana MITCHELL, Dr. Reyes Attending Provider Yoana MITCHELL, Dr. Reyes Referring Provider [phone] Eric Lees Primary Care Unavailable Sibilia, Ryley V Referring Unavailable Sibilia, Ryley V Attending Unavailable Jotomasiff, Monika S Primary Care Unavailable Jolliff, Monika S Referring Unavailable JolliffMonika S Attending Unavailable Zoraida Monika S Primary Care Unavailable Monika Conway S Attending Unavailable Eric Lees Referring Unavailable Eric Lees Attending Unavailable Eric Lees Primary Care Unavailable Jolliff, Monika S Attending Unavailable Jolliff, Monika S Primary Care Unavailable Jolliff, Omnika S Referring Unavailable Allergies Allergy Classification Reported Allergen(s) Allergy Type Date of Onset Reaction(s) Facility (15 sources) levoFLOXacin Drug Allergy 04-09-2015 [facility] (1 source) levoFLOXacin Drug Allergy 04-09-2015 [facility] Repository Medications Current Medications Medication Drug Class(es) Dates Sig (Normalized) Sig (Original) albuterol 0.833 mg/ml / ipratropium bromide 0.167 mg/ml inhalation solution (15 sources) Anticholinergic, beta2-Adrenergic Agonist Start: 11-09-2013 take [...] aspirin 81 mg delayed release oral tablet (15 sources) Platelet Aggregation Inhibitor, Nonsteroidal Anti-inflammatory Drug Start: 05-06-2014 take 1 tablet by mouth once daily Aspirin 81 MG tablet Active 81 mg PO DAILY@0800 May 06, 2014 1:00am azithromycin 500 mg oral tablet (15 sources) Macrolide Antimicrobial Start: 04-11-2015 take 1 tablet by mouth once daily Azithromycin (Zithromax) 500 MG tablet Active 500 mg PO DAILY 3 April 11, 2015 1:00am cefpodoxime 200 mg oral tablet (15 sources) Cephalosporin Antibacterial Start: 04-11-2015 take 1 tablet by mouth every twelve hours Cefpodoxime 200 MG tablet Active 200 mg PO Q12H 14 0 April 11, 2015 1:00am cholecalciferol 0.05 mg oral tablet (15 sources) Vitamin D Start: 05-06-2014 take 3 tablets by mouth once daily Cholecalciferol (Vitamin D3) (Vitamin D3) 1,000 UNIT tablet Active 3000 U PO DAILY May 06, 2014 1:00am 12 hr guaiFENesin 600 mg extended release oral tablet (15 sources) Start: 04-11-2015 Guaifenesin (Mucus Relief Er) 600 MG tablet Active 1200 mg PO TWICE A DAY 14 April 11, 2015 1:00am metoprolol tartrate 25 mg oral tablet (15 sources) beta-Adrenergic August Start: 11-09-2013 take 1 tablet by mouth twice daily Metoprolol Tartrate 25 MG tablet Active 25 mg PO TWICE A DAY November 09, 2013 12:00am predniSONE 20 mg oral tablet (15 sources) Start: 04-11-2015 take 1 tablet by mouth twice daily Prednisone 20 MG tablet Active 20 mg PO TWICE A DAY 10 0 April 11, 2015 1:00am thyroid ([facility]) 180 mg oral tablet (20 sources) Start: 05-06-2014 Thyroid (Pork) ([place] Thyroid) 180 MG tablet Active 180 mg PO SA May 06, 2014 1:00am Start: 05-06-2014 Thyroid (Pork) ([place] Thyroid) 60 MG tablet Active 120 mg PO SUMOTUWETHFR May 06, 2014 1:00am vitamin e 180 mg oral capsul e (15 sources) Start: 04-09-2015 Vitamin E (Dl, Acetate) 400 UNITS capsule Active 400 U PO DAILY April 09, 2015 1:00am Problems Active Problems Problem Classification Problem Date Documented Date Episodic/Chronic Cardiac dysrhythmias (15 sources) Tachyarrhythmia ; Translations: [Tachycardia, unspecified] 04-09-2015 Episodic Chronic obstructive pulmonary disease and bronchiectasis (15 sources) Chronic obstructive lung disease 04-09-2015 Chronic Disorders of lipid metabolism (1 source) Hyperlipidemia, unspecified; Translations: [Hyperlipidemia, unspecified] Onset: 07-02-2024 Chronic Heart valve disorders (15 sources) Mitral valve prolapse; Translations: [Nonrheumatic mitral (valve) prolapse] 03-31-2015 Chronic Other lower respiratory disease (1 source) Dyspnea, unspecified; Translations: [Dyspnea, unspecified] Onset: 12-12-2024 Episodic Other lower respiratory disease (1 source) Solitary pulmonary nodule; Translations: [Solitary pulmonary nodule] Onset: 12-12-2024 Episodic Pneumonia (except that caused by tuberculosis or sexually transmitted disease) (20 sources) Haemophilus influenzae pneumonia; Translations: [Pneumonia due to Hemophilus influenzae] 04-11-2015 Episodic Comment on above: Right lower lip pneu monia Residual codes; unclassified (15 sources) Tobacco user; Translations: [Tobacco use] 04-09-2015 Episodic Thyroid disorders (16 sources) Hypothyroidism; Translations: [Hypothyroidism, unspecified] Onset: 11-03-2024 04-09-2015 Chronic Past or Other Problems Problem Classification Problem Date Documented Da te Episodic/Chronic Other screening for suspected conditions (not mental disorders or infectious disease) (1 source) Encounter for screening for malignant neoplasm of respiratory organs; Translations: [Encounter for screening for malignant neoplasm of respiratory organs] Onset: 04-27-2024 Episodic Results Test Name Value Interpretation Reference Range Facility Respiratory Cultureon 2024 RESPC UNK Mixed normal respiratory vee. No Streptococcus pneumoniae, beta-hemolytic Streptococcus or Staphylococcus aureus isolated. Normal [facility] Comment on above: Performed By: #### L 501.9520, L501.4405, L500.4100, L501.4100 #### [facility] [address] [place], [place], [address] Gram Stainon 12-12-2024 GS UNK Acceptable Specimen? Yes (<25 Epithelial cells per/lpf) Gram Stain 2+ Gram positive cocci 2+ Gram negative rods 2+ White Blood Cells 1+ Epithelial cells 1+ White Blood Cells Normal [facility] Comment on above: Performed By: #### L 501.9520, L501.4405, L500.4100, L501.4100 #### [facility] [address] [place], [place], [address] Absolute lymphocyte countOrd ered By: Eric Lees on 10-28-2024 Lymphocytes Auto (Unsp spec) [#/Vol] 1.10 10*3/uL 0.83-4.51 [facility] Absolute neutrophil countOrd ered By: Eric Lees on 10-28-2024 Neutrophils (Bld) [#/Vol] 2.0 10*3/uL 2.0-7.7 [facility] Anion gap in Serum or Plasma Ordered By: Eric Lees on 10-28-2024 Anion gap [Moles/Vol] 12 mmol/L 5-15 [facility] Automated lymphocyte count a s percentage of total leukocytesOrdered By: Eric Lees on 10-28-2024 Lymphocytes/100 WBC Auto (Unsp spec) 32.3 % 19-41 [facility] BUN/creatinine ratioOrdered By: Eric Lees on 10-28-2024 Urea nitrogen/Creatinine [Mass ratio] 18.6 mg/mg 10-20 [facility] Basophil percentageOrdered B y: Eric Lees on 10-28-2024 Basophils/100 WBC (Bld) 0.6 % 0-1 [facility] Bilirubin, totalOrdered By: Eric Lees on 10-28-2024 Bilirubin [Mass/Vol] 0.57 mg/dL 0.00-1.30 [facility] CBC W/Diff, Automatedon 10-01 Absolute Lymph 1.10 X10 3/uL Normal 0.83-4.51 [facility] Comment on above: Performed By: #### L 506.0400, L501.9520, L500.4050, L100.0100, L501.67640 #### [facility] [address] [place], [address] Absolute Neut 2.0 X10 3/uL Normal 2.0-7.7 [facility] Comment on above: Performed By: #### L 506.0400, L501.9520, L500.4050, L100.0100, L501.80077 #### [facility] [address] [place], [address] Basophils/100 WBC (Bld) 0.6 % Normal 0-1 [facility] Comment on above: Performed By: #### L 506.0400, L501.9520, L500.4050, L100.0100, L501.60969 #### [facility] [address] [place], [address] Eosinophils/100 WBC (Bld) 1.8 % Normal 0-5 [facility] Comment on above: Performed By: #### L 506.0400, L501.9520, L500.4050, L100.0100, L501.33495 #### [facility] [address] [place], [address] Erythrocyte distribution width (RBC) [Ratio] 12.4 % Normal 11.6-14.6 [facility] Comment on above: Performed By: #### L 506.0400, L501.9520, L500.4050, L100.0100, L501.04922 #### [facility] [address] [place], [address] Hematocrit (Bld) [Volume fraction] 44.6 % Normal 37-47 [facility] Comment on above: Performed By: #### L 506.0400, L501.9520, L500.4050, L100.0100, L501.83480 #### [facility] [address] [place], [address] Hemoglobin (Bld) [Mass/Vol] 14.6 g/dL Normal 12.0-15.0 [facility] Comment on above: Performed By: #### L 506.0400, L501.9520, L500.4050, L100.0100, L501.24419 #### [facility] [address] [place], [address] IG% 0.000 Normal 0.0-0.9 [facility] Comment on above: Result Comment: IG% - Immature Granulocytes (promyelocytes, myelocytes and metamyelocytes) > 1% indicates that a LEFT SHIFT is Present. Performed By: #### L 506.0400, L501.9520, L500.4050, L100.0100, L501.38563 #### [facility] [address] [place], [address] Lymphocytes/100 WBC (Bld) 32.3 % Normal 19-41 [facility] Comment on above: Performed By: #### L 506.0400, L501.9520, L500.4050, L100.0100, L501.44570 #### [facility] [address] [place], [address] MCH (RBC) [Entitic mass] 28.6 pg Normal 27.0-32.0 [facility] Comment on above: Performed By: #### L 506.0400, L501.9520, L500.4050, L100.0100, L501.77748 #### [facility] [address] [place], [address] MCHC (RBC) [Mass/Vol] 32.7 g/dL Normal 32-36 [facility] Comment on above: Performed By: #### L 506.0400, L501.9520, L500.4050, L100.0100, L501.95478 #### [facility] [address] [place], [address] MCV (RBC) [Entitic vol] 87.3 fL Normal 81-99 [facility] Comment on above: Performed By: #### L 506.0400, L501.9520, L500.4050, L100.0100, L501.77081 #### [facility] [address] [place], [address] Monocytes/100 WBC (Bld) 7.6 % Normal 0-10 [facility] Comment on above: Performed By: #### L 506.0400, L501.9520, L500.4050, L100.0100, L501.31821 #### [facility] [address] [place], [address] Neutrophils/100 WBC (Bld) 57.7 % Normal 47-70 [facility] Comment on above: Performed By: #### L 506.0400, L501.9520, L500.4050, L100.0100, L501.23543 #### [facility] [address] [place], [address] Nucleated RBC (Bld) [#/Vol] 0 10*3/uL Normal 0-5 [facility] Comment on above: Performed By: #### L 506.0400, L501.9520, L500.4050, L100.0100, L501.94366 #### [facility] [address] [place], [address] Platelet mean volume (Bld) [Entitic vol] 9.5 fL Normal 6.2-12.0 [facility] Comment on above: Performed By: #### L 506.0400, L501.9520, L500.4050, L100.0100, L501.83247 #### [facility] [address] [place], [address] Platelets (Bld) [#/Vol] 177 10*3/uL Normal 150-450 [facility] Comment on above: Performed By: #### L 506.0400, L501.9520, L500.4050, L100.0100, L501.63212 #### [facility] [address] [place], [address] RBC (Bld) [#/Vol] 5.11 10*6/uL Normal 4.2-5.4 [facility] Comment on above: Performed By: #### L 506.0400, L501.9520, L500.4050, L100.0100, L501.84512 #### [facility] [address] [place], [address] RDW SD 39.8 fl Normal 35.1-43.9 [facility] Comment on above: Performed By: #### L 506.0400, L501.9520, L500.4050, L100.0100, L501.84660 #### [facility] [address] [place], [address] WBC (Bld) [#/Vol] 3.4 10*3/uL Low 4.4-11.0 [facility] Comment on above: Performed By: #### L 506.0400, L501.9520, L500.4050, L100.0100, L501.37588 #### [facility] [address] [place], [address] Carbon dioxide, total [Moles /volume] in Central venous bloodOrdered By: Eric Lees on 10-28-2024 CO2 [Moles/Vol] 24.7 mmol/L 21.0-32.0 [facility] Chloride assayOrdered By: Elia Lees on 10-28-2024 Chloride [Moles/Vol] 103 mmol/L 98-108 [facility] Comprehensive Metabolic Prof ilon 10-28-2024 Albumin [Mass/Vol] 4.4 g/dL Normal 3.5-5.0 [facility] Comment on above: Order Comment: Order Date: 03/28/24 Order Info: 1919-11 - AST Order Info: 1741-08 - ALT Performed By: #### L 506.0400, L501.9520, L500.4050, L100.0100, L501.60059 #### [facility] [address] [place], [address] Albumin/Globulin [Mass ratio] 1.7 {ratio} Normal 0.9-2.4 [facility] Comment on above: Order Comment: Order Date: 03/28/24 Order Info: 1919-11 - AST Order Info: 1741-08 - ALT Performed By: #### L 506.0400, L501.9520, L500.4050, L100.0100, L501.94818 #### [facility] [address] [place], [address] ALK PHOS 114 U/L High 35-104 [facility] Comment on above: Order Comment: Order Date: 03/28/24 Order Info: 1919-11 - AST Order Info: 1741-08 - ALT Performed By: #### L 506.0400, L501.9520, L500.4050, L100.0100, L501.91183 #### [facility] [address] [place], [address] ALT [Catalytic activity/Vol] 17 U/L Normal <=34 [facility] Comment on above: Order Comment: Order Date: 03/28/24 Order Info: 1919-11 - AST Order Info: 1741-08 - ALT Performed By: #### L 506.0400, L501.9520, L500.4050, L100.0100, L501.03665 #### [facility] [address] [place], [address] AST [Catalytic activity/Vol] 21 U/L Normal <=31 [facility] Comment on above: Order Comment: Order Date: 03/28/24 Order Info: 1919-11 - AST Order Info: 1741-08 - ALT Performed By: #### L 506.0400, L501.9520, L500.4050, L100.0100, L501.76380 #### [facility] [address] [place], [address] Bilirubin [Mass/Vol] 0.57 mg/dL Normal 0.00-1.30 [facility] Comment on above: Order Comment: Order Date: 03/28/24 Order Info: 1919-11 AST Order Info: 1741-08 - ALT Performed By: #### L 506.0400, L501.9520, L500.4050, L100.0100, L501.33318 #### [facility] [address] [place], [address] BUN/CRE 18.6 RATIO Normal 10-20 [facility] Comment on above: Order Comment: Order Date: 03/28/24 Order Info: 1919-11 AST Order Info: 1741-08 - ALT Performed By: #### L 506.0400, L501.9520, L500.4050, L100.0100, L501.92129 #### [facility] [address] [place], [address] Calcium [Mass/Vol] 9.4 mg/dL Normal 7.6-11.0 [facility] Comment on above: Order Comment: Order Date: 03/28/24 Order Info: 1919-11 - AST Order Info: 1741-08 - ALT Performed By: #### L 506.0400, L501.9520, L500.4050, L100.0100, L501.13591 #### [facility] [address] [place], [address] Chloride [Moles/Vol] 103 mmol/L Normal 98-108 [facility] Comment on above: Order Comment: Order Date: 03/28/24 Order Info: 1919-11 - AST Order Info: 1741-08 - ALT Performed By: #### L 506.0400, L501.9520, L500.4050, L100.0100, L501.85780 #### [facility] [address] [place], [address] CO2 [Moles/Vol] 24.7 mmol/L Normal 21.0-32.0 [facility] Comment on above: Order Comment: Order Date: 03/28/24 Order Info: 1919-11 AST Order Info: 1741-08 - ALT Performed By: #### L 506.0400, L501.9520, L500.4050, L100.0100, L501.66719 #### [facility] [address] [place], [address] Creatinine [Mass/Vol] 0.81 mg/dL Normal 0.70-1.20 [facility] Comment on above: Order Comment: Order Date: 03/28/24 Order Info: 1919-11 AST Order Info: 1741-08 - ALT Performed By: #### L 506.0400, L501.9520, L500.4050, L100.0100, L501.23086 #### [facility] [address] [place], [address] GAP 12 Normal 5-15 [facility] Comment on above: Order Comment: Order Date: 03/28/24 Order Info: 1919-11 - AST Order Info: 1741-08 - ALT Performed By: #### L 506.0400, L501.9520, L500.4050, L100.0100, L501.54538 #### [facility] [address] [place], [address] GFR/1.73 sq M.predicted among non-blacks MDRD (S/P/Bld) [Vol rate/Area] 84 mL/min/{1.73_m2} Normal >60 [facility] Comment on above: Order Comment: Order Date: 03/28/24 Order Info: 1919-11 - AST Order Info: 1741-08 - ALT Result Comment: mL/m in/1.73m2 CKD-EPI Creatinine Equation (2020) Performed By: #### L 506.0400, L501.9520, L500.4050, L100.0100, L501.11852 #### [facility] [address] [place], [address] Globulin (S) [Mass/Vol] 2.6 g/dL Normal 2.2-4.2 [facility] Comment on above: Order Comment: Order Date: 03/28/24 Order Info: 1919-11 - AST Order Info: 1741-08 - ALT Performed By: #### L 506.0400, L501.9520, L500.4050, L100.0100, L501.99996 #### [facility] [address] [place], [address] Glucose [Mass/Vol] 97 mg/dL Normal 70-99 [facility] Comment on above: Order Comment: Order Date: 03/28/24 Order Info: 1919-11 - AST Order Info: 1741-08 - ALT Performed By: #### L 506.0400, L501.9520, L500.4050, L100.0100, L501.20403 #### [facility] [address] [place], [address] Potassium [Moles/Vol] 4.3 mmol/L Normal 3.3-5.1 [facility] Comment on above: Order Comment: Order Date: 03/28/24 Order Info: 1919-11 - AST Order Info: 1741-08 - ALT Performed By: #### L 506.0400, L501.9520, L500.4050, L100.0100, L501.08103 #### [facility] [address] [place], [address] Sodium [Moles/Vol] 139 mmol/L Normal 133-145 [facility] Comment on above: Order Comment: Order Date: 03/28/24 Order Info: 1919-11 - AST Order Info: 1741-08 - ALT Performed By: #### L 506.0400, L501.9520, L500.4050, L100.0100, L501.66193 #### [facility] [address] [place], [place], [address] T PROT 6.9 g/dL Normal 5.9-8.4 [facility] Comment on above: Order Comment: Order Date: 03/28/24 Order Info: 1919-11 - AST Order Info: 1741-08 - ALT Performed By: #### L 506.0400, L501.9520, L500.4050, L100.0100, L501.47089 #### [facility] [address] [place], [address] Urea nitrogen [Mass/Vol] 15 mg/dL Normal 4-19 [facility] Comment on above: Order Comment: Order Date: 03/28/24 Order Info: 1919-11 - AST Order Info: 1741-08 - ALT Performed By: #### L 506.0400, L501.9520, L500.4050, L100.0100, L501.70798 #### [facility] [address] [place], [address] Eosinophil percentageOrdered By: Eric Lees on 10-28-2024 Eosinophils/100 WBC (Bld) 1.8 % 0-5 [facility] Erythrocyte distribution wid th ratioOrdered By: Eric Lees on 10-28-2024 Erythrocyte distribution width (RBC) [Ratio] 12.4 % 11.6-14.6 [facility] Erythrocyte distribution wid th standard deviationOrdered By: Eric Lees on 10-28-2024 Erythrocyte distribution width (RBC) [Ratio] 39.8 fl 35.1-43.9 [facility] Free T3on 10-28-2024 Free T3 [Mass/Vol] 3.2 pg/mL Normal 2.18-3.98 [facility] Comment on above: Order Comment: Order Date: 03/28/24 Order Info: 1919-11 - AST Order Info: 174-6 - ALT Performed By: #### L 506.0400, L501.9520, L500.4050, L100.0100, L501.17098 #### [facility] [address] [place], [address] Free [id number] By: Eric lorenzo on 10-28-2024 Free T3 [Mass/Vol] 3.2 pg/mL 2.18-3.98 [facility] Glomerular filtration rate ( GFR) estimation/1.73 sq m using serum, plasma, or whole bOrdered By: Eric Lees on 10-28-2024 GFR/1.73 sq M.predicted among non-blacks MDRD (S/P/Bld) [Vol rate/Area] 84 mL/min/{1.73_m2} >60 [facility] Comment on above: mL/min/1.73m2 CKD-EP I Creatinine Equation (2020) Hematocrit Auto (Bld) [Volum e fraction]Ordered By: Eric Lees on 10-28-2024 Hematocrit (Bld) [Volume fraction] 44.6 % 37-47 [facility] Hemoglobin measurementOrdere d By: Eric Lees on 10-28-2024 Hemoglobin (Bld) [Mass/Vol] 14.6 g/dL 12.0-15.0 [facility] Immature granulocytes/100 WB C Auto (Bld)Ordered By: Eric Lees on 10-28-2024 Immature granulocytes/100 WBC (Bld) 0.000 % 0.0-0.9 [facility] Comment on above: IG% - Immature Granu locytes (promyelocytes, myelocytes and metamyelocytes) > 1% indicates that a LEFT SHIFT is Present. Laboratory - Chemistry and C hemistry - challengeOrdered By: Eric Lees on 10-28-2024 AST [Catalytic activity/Vol] 21 U/L <32 [facility] MCV (mean corpuscular volume ) determinationOrdered By: Eric Lees on 10-28-2024 MCV (RBC) [Entitic vol] 87.3 fL 81-99 [facility] Mean corpuscular hemoglobin (MCH) determinationOrdered By: Eric Lees on 10-28-2024 MCH (RBC) [Entitic mass] 28.6 pg 27.0-32.0 [facility] Mean corpuscular hemoglobin concentration (MCHC) determinationOrdered By: Eric Lees on 10-28-2024 MCHC (RBC) [Mass/Vol] 32.7 g/dL 32-36 [facility] Mean platelet volume determi nationOrdered By: Eric Lees on 10-28-2024 Platelet mean volume (Bld) [Entitic vol] 9.5 fL 6.2-12.0 [facility] Monocyte percentageOrdered B y: Eric Lees on 10-28-2024 Monocytes/100 WBC (Bld) 7.6 % 0-10 [facility] Neutrophil percentageOrdered By: Eric Lees on 10-28-2024 Neutrophils/100 WBC (Bld) 57.7 % 47-70 [facility] Nucleated red blood cell per centageOrdered By: Eric Lees on 10-28-2024 Nucleated RBC/100 WBC (Bld) [Ratio] 0 % 0-5 [facility] Platelet countOrdered By: Elia Lees on 10-28-2024 Platelets (Bld) [#/Vol] 177 10*3/uL 150-450 [facility] Potassium measurement (mass/ volume)Ordered By: Eric Lees on 10-28-2024 Potassium (Unsp spec) [Mass/Vol] 4.3 mmol/L 3.3-5.1 [facility] RBC Auto (Bld) [#/Vol]Ordere d By: Eric Lees on 10-28-2024 RBC (Bld) [#/Vol] 5.11 10*6/uL 4.2-5.4 [facility] Serum creatinine measurement (mass/volume)Ordered By: Eric Lees on 10-28-2024 Creatinine [Mass/Vol] 0.81 mg/dL 0.70-1.20 [facility] Serum globulin measurementOr dered By: Eric Lees on 10-28-2024 Globulin (S) [Mass/Vol] 2.6 g/dL 2.2-4.2 [facility] Serum glucose measurement (m ass/volume)Ordered By: Eric Lees on 10-28-2024 Glucose [Mass/Vol] 97 mg/dL 70-99 [facility] Serum or plasma alanine anderson otransferase (ALT) measurementOrdered By: Eric Lees on 10-28-2024 ALT [Catalytic activity/Vol] 17 U/L <35 [facility] Serum or plasma albumin laci urement (mass/volume)Ordered By: Eric Lees on 10-28-2024 Albumin [Mass/Vol] 4.4 g/dL 3.5-5.0 [facility] Serum or plasma albumin/glob ulin mass ratioOrdered By: Eric Lees on 10-28-2024 Albumin/Globulin [Mass ratio] 1.7 {ratio} 0.9-2.4 [facility] Serum or plasma alkaline radha sphatase measurementOrdered By: Eric Lees on 10-28-2024 ALP [Catalytic activity/Vol] 114 U/L High 35-104 [facility] Serum or plasma calcium laci urement (mass/volume)Ordered By: Eric Lees on 10-28-2024 Calcium [Mass/Vol] 9.4 mg/dL 7.6-11.0 [facility] Serum or plasma urea nitroge n measurement (mass/volume)Ordered By: Eric Lees on 10-28-2024 Urea nitrogen [Mass/Vol] 15 mg/dL 4-19 [facility] Sodium levelOrdered By: Eric Lees on 10-28-2024 Sodium [Moles/Vol] 139 mmol/L 133-145 [facility] T4 Free Directon 10-28-2024 T4 FREE DIRECT 1.90 ng/dL High 0.76-1.46 [facility] Comment on above: Order Comment: Order Date: 03/28/24 Order Info: 1919-11 - AST Order Info: 1741-08 - ALT Performed By: #### L 506.0400, L501.9520, L500.4050, L100.0100, L501.78509 #### [facility] [address] [place], [place], [address] T4 freeOrdered By: Eric lorenzo on 10-28-2024 Free T4 [Mass/Vol] 1.90 ng/dL High 0.76-1.46 [facility] TSH DL <= 0.005 mIU/L QnOrde red By: Eric Lees on 10-28-2024 TSH Qn 0.106 uIU/mL Low 0.300-4.200 [facility] Thyroid Stim Hormone (TSH)on 10-28-2024 TSH 0.106 uIU/mL Low 0.300-4.200 [facility] Comment on above: Order Comment: Order Date: 03/28/24 Order Info: [id number] - AST Order Info: [id number] - ALT Performed By: #### L 506.0400, L501.9520, L500.4050, L100.0100, L501.99346 #### [facility] [address] [place], [place], [address] Total proteinOrdered By: Shana Lees on 10-28-2024 Protein [Mass/Vol] 6.9 g/dL 5.9-8.4 [facility] White blood cell (WBC) count Ordered By: Eric Lees on 10-28-2024 WBC (Bld) [#/Vol] 3.4 10*3/uL Low 4.4-11.0 [facility] L506.1001on 07-01-2024 Vitamin D 25-OH 34.2 ng/mL Normal 30-100 [facility] Comment on above: Result Comment: Carla min D Status Deficiency: <20 ng/mL (50nmol/L) Insufficiency: 20-30 ng/mL (50-75 nmol/L) Sufficiency: 30-100 ng/mL (75-250 nmol/L) Toxicity: >100 ng/mL (>250 nmol/L) Performed By: #### L 506.1001 #### [facility] [address] [place], [address] AST(SGOT)on 06-30-2024 AST [Catalytic activity/Vol] 23 U/L Normal <=31 [facility] Comment on above: Performed By: #### L 501.9520, L501.4405, L500.4100, L501.4100 #### [facility] [address] [place], [address] Alanine Aminotransferas (SGP T)on 06-30-2024 ALT [Catalytic activity/Vol] 25 U/L Normal <=34 [facility] Comment on above: Performed By: #### L 501.9520, L501.4405, L500.4100, L501.4100 #### [facility] [address] [place], [address] Calculated very low density lipoprotein (VLDL) cholesterol measurementOrdered By: Monika Conway on 06-30-2024 VLDL Cholesterol 11 mg/dL 5-40 [facility] LDL calc ser/plasOrdered By: Monika Conway on 06-30-2024 LDL Cholesterol, Calculated 175 mg/dL [facility] Comment on above: Zhkywusfcc=137-774 m g/dL & Higher Shkc=129 mg/dL or greater Laboratory - Chemistry and C hemistry - challengeOrdered By: Monika Conway on 06-30-2024 AST [Catalytic activity/Vol] 23 U/L <32 [facility] Lipid Profileon 06-30-2024 CHOL:HDL 3.76 Normal [facility] Comment on above: Performed By: #### L 501.9520, L501.4405, L500.4100, L501.4100 #### [facility] [address] [place], [address] Cholesterol [Mass/Vol] 253 mg/dL High <=200 [facility] Comment on above: Result Comment: Chol esterol level, Desirable <200 mg/dL Borderline high cholesterol 200-239 mg/dL High cholesterol >=240 mg/dL Recommendations of the NCEP Adult Treatment Panel for the following risk-cutoff thresholds for the [place] population. Performed By: #### L 501.9520, L501.4405, L500.4100, L501.4100 #### [facility] [address] [place], [address] Cholesterol in HDL [Mass/Vol] 67 mg/dL Normal [facility] Comment on above: Result Comment: Radha onal Cholesterol Education Program (NCEP) guidelines: <40 mg/dL: Low HDL-cholesterol (major risk factor for CHD) >= 60 mg/dL: High HDL-cholesterol (negative risk factor for CHD) HDL-cholesterol is affected by a number of factors, e.g. smoking, exercise, hormones, sex and age. Performed By: #### L 501.9520, L501.4405, L500.4100, L501.4100 #### [facility] [address] [place], [address] Cholesterol in LDL [Mass/Vol] 175 mg/dL Normal [facility] Comment on above: Result Comment: Bord hejpes=458-741 mg/dL Higher Lpug=304 mg/dL or greater Performed By: #### L 501.9520, L501.4405, L500.4100, L501.4100 #### [facility] [address] [place], [address] Cholesterol in VLDL [Mass/Vol] 11 mg/dL Normal 5-40 [facility] Comment on above: Performed By: #### L 501.9520, L501.4405, L500.4100, L501.4100 #### [facility] [address] [place], [address] Triglyceride [Mass/Vol] 53 mg/dL Normal [facility] Comment on above: Result Comment: The drugs N-Acetylcysteine and Metamizole may falsely depress this assay. Normal range: <150 mg/dL Borderline High: 150-199 mg/dL High: 200-499 mg/dL Very High: >500 mg/dL Performed By: #### L 501.9520, L501.4405, L500.4100, L501.4100 #### [facility] [address] [place], [address] Screening total cholesterol/ high density lipoprotein (HDL) cholesterol ratioOrdered By: Monika Conway on 06-30-2024 Cholesterol.total/Choles terol in HDL [Mass ratio] 3.76 {ratio} [facility] Serum or plasma alanine anderson otransferase (ALT) measurementOrdered By: Monika Conway on 06-30-2024 ALT [Catalytic activity/Vol] 25 U/L <35 [facility] Serum or plasma cholesterol in HDL measurement (mass/volume)Ordered By: Monika Conway on 06-30-2024 Cholesterol in HDL [Mass/Vol] 67 mg/dL >40 [facility] Comment on above: National Cholesterol Education Program (NCEP) guidelines:<40 mg/dL: Low HDL-cholesterol (major risk factor for CHD)>= 60 mg/dL: High HDL-cholesterol (negative risk factor for CHD)HDL-cholesterol is affected by a number of factors, e.g. smoking, exercise, hormones, sex and age. Serum or plasma cholesterol measurement (mass/volume)Ordered By: Monika Conway on 06-30-2024 Cholesterol [Mass/Vol] 253 mg/dL High <201 [facility] Comment on above: Cholesterol level, D esirable <200 mg/dLBorderline high cholesterol 200-239 mg/dLHigh cholesterol >=240 mg/dLRecommendations of the NCEP Adult Treatment Panel for the following risk-cutoff thresholds for the [place] population. TSH DL <= 0.005 mIU/L QnOrde red By: Monika Conway on 06-30-2024 Thyroid Stimulating Hormone (TSH) 0.287 uIU/mL Low 0.300-4.200 [facility] Thyroid Stim Hormone (TSH)on 06-30-2024 TSH 0.287 uIU/mL Low 0.300-4.200 [facility] Comment on above: Performed By: #### L 501.9520, L501.4405, L500.4100, L501.4100 #### [facility] [address] [place], [place], [address] Triglycerides measurementOrd ered By: Monika Conway on 06-30-2024 Triglyceride [Mass/Vol] 53 mg/dL <199 [facility] Comment on above: The drugs N-Acetylcy steine and Metamizole may falsely depress this assay. Normal range: <150 mg/dLBorderline High: 150-199 mg/dLHigh: 200-499 mg/dLVery High: >500 mg/dL Vitamin D, 25-hydroxyOrdered By: Monika Conway on 06-30-2024 Vitamin D 25-Hydroxy 34.2 ng/mL 30-100 [facility] Comment on above: Vitamin D StatusDefi ciency: <20 ng/mL (50nmol/L)Insufficiency: 20-30 ng/mL (50-75 nmol/L)Sufficiency: 30-100 ng/mL (75-250 nmol/L)Toxicity: >100 ng/mL (>250 nmol/L) Low Dose CT Lung Screeningon 04-04-[address] Lung Screening [facility] [address] [place], [place] [address] Low Dose CT Lung Screening MR#: [id number] Acct: [id number] Name: JODEE MORALEZ Rep #: [id number] : [id number] F [id number] From: Sunny espinal DO PCP: Dr. Monika Conway MD Status: [facility] Study: Low Dose CT Lung Screening Date of Exam: 04/04 Exam# [id number] Ordering Dr: Monika Conway MD [id number] EXAM: CT CHEST, LUNG CANCER SCREENING WITHOUT [...] EST , CC: Dr. Monika Conway MD Cinetechnician: Signed Normal [facility] AST(SGOT)on 02-11-2024 AST [Catalytic activity/Vol] 16 U/L Normal 15-37 [facility] Comment on above: Performed By: #### L 501.9533, L501.4405, L500.4100, L501.4100 #### [facility] [address] [place], [address] Alanine Aminotransferas (SGP T)on 02-11-2024 ALT [Catalytic activity/Vol] 24 U/L Normal 13-56 [facility] Comment on above: Performed By: #### L 501.9520, L501.4405, L500.4100, L501.4100 #### [facility] [address] [place], [address] Lipid Profileon 02-11-2024 Cholesterol [Mass/Vol] 279 mg/dL High 200 [facility] Comment on above: Result Comment: <200 mg/dL Desirable 200-240 mg/dL Borderline >240 mg/dL High Risk Performed By: #### L 501.9520, L501.4405, L500.4100, L501.4100 #### [facility] [address] [place], [address] Cholesterol in HDL [Mass/Vol] 84 mg/dL Normal [facility] Comment on above: Result Comment: The drugs N-Acetylcysteine and Metamizole may falsely depress this assay. Reference Range HDL <40 mg/dL Low HDL Cholesterol HDL >or= 60 mg/dL High HDL Cholesterol Performed By: #### L 501.9520, L501.4405, L500.4100, L501.4100 #### [facility] [address] [place], [address] Cholesterol in LDL [Mass/Vol] 183 mg/dL High 0-130 [facility] Comment on above: Performed By: #### L 501.9520, L501.4405, L500.4100, L501.4100 #### [facility] [address] [place], [address] Cholesterol in VLDL [Mass/Vol] 12 mg/dL Normal 5-40 [facility] Comment on above: Performed By: #### L 501.9520, L501.4405, L500.4100, L501.4100 #### [facility] [address] [place], [address] Triglyceride [Mass/Vol] 60 mg/dL Normal [facility] Comment on above: Result Comment: The drugs N-Acetylcysteine and Metamizole may falsely depress this assay. Serum Triglycerides Reference Interval Normal <150 mg/dL Borderline high 150 - 199 mg/dL High 200 - 499 mg/dL Very High > or = 500 mg/dL Performed By: #### L 501.9520, L501.4405, L500.4100, L501.4100 #### [facility] [address] [place], [address] Thyroid Stim Hormone (TSH)on 02-11-2024 TSH 11.700 uIU/mL High 0.358-3.740 [facility] Comment on above: Performed By: #### L 501.9520, L501.4405, L500.4100, L501.4100 #### [facility] [address] [place], [address] Serum or plasma thyroid stim ulating hormone (TSH) measurement (units/volume)Ordered By: Monika Conway on 07-31-2023 TSH Qn 3.87 uIU/mL 0.358-3.74 [facility] Serum or plasma thyroid stim ulating hormone (TSH) measurement (units/volume)Ordered By: Monika Conway on 05-08-2023 TSH Qn 0.13 uIU/mL 0.358-3.74 [facility] Absolute lymphocyte countOrd ered By: Monika Conway on 04-05-2023 Lymphocytes Auto (Unsp spec) [#/Vol] 1.23 10*3/uL 0.83-4.51 [facility] Basophil percentageOrdered B y: Monika Conway on 04-05-2023 Basophils/100 WBC (Bld) 0.7 % 0-1 [facility] Bilirubin [Mass/Vol] 0.60 mg/dL 0.20-1.00 [facility] Comment on above: For patients on eltr ombopag therapy, use of Dimension [place] TBIL is not recommended. Chloride [Moles/Vol] 103 mmol/L 98-107 [facility] Eosinophils/100 WBC (Bld) 1.4 % 0-5 [facility] Glucose [Mass/Vol] 93 mg/dL 74-106 [facility] Neutrophils (Bld) [#/Vol] 2.7 10*3/uL 2.0-7.7 [facility] Neutrophils/100 WBC (Bld) 62.4 % 47-70 [facility] Potassium [Moles/Vol] 3.9 mmol/L 3.5-5.1 [facility] Protein [Mass/Vol] 7.3 g/dL 6.4-8.2 [facility] Sodium [Moles/Vol] 137 mmol/L 136-145 [facility] WBC (Bld) [#/Vol] 4.3 10*3/uL 4.4-11.0 [facility] Blood erythrocytes count (nu mber/volume)Ordered By: Monika Conway on 04-05-2023 RBC (Bld) [#/Vol] 5.11 10*6/uL 4.2-5.4 [facility] Blood hemoglobin measurement (mass/volume)Ordered By: Monika Conway on 04-05-2023 Hemoglobin (Bld) [Mass/Vol] 14.8 g/dL 12.0-15.0 [facility] Blood lymphocytes/100 leukoc ytesOrdered By: Monika Conway on 04-05-2023 Lymphocytes/100 WBC (Bld) 28.6 % 19-41 [facility] Blood monocytes/100 leukocyt esOrdered By: Monika Conway on 04-05-2023 Monocytes/100 WBC (Bld) 6.7 % 0-10 [facility] Blood platelet mean volumeOr dered By: Monika Conway on 04-05-2023 Platelet mean volume (Bld) [Entitic vol] 9.0 fL 6.2-12.0 [facility] Determination of erythrocyte mean corpuscular volume (MCV)Ordered By: Monika Conway on 04-05-2023 MCV (RBC) [Entitic vol] 90.4 fL 81-99 [facility] Hematocrit Auto (Bld) [Volum e fraction]Ordered By: Monika Conway on 04-05-2023 Hematocrit (Bld) [Volume fraction] 46.2 % 37-47 [facility] - Chemistry and C hemistry - challengeOrdered By: Monika Conway on 04-05-2023 ALP [Catalytic activity/Vol] 116 U/L 45-117 [facility] ALT [Catalytic activity/Vol] 19 U/L 13-56 [facility] CO2 [Moles/Vol] 28.0 mmol/L 21.0-32.0 [facility] Globulin (S) [Mass/Vol] 3.4 g/dL 2.2-4.2 [facility] Urea nitrogen/Creatinine [Mass ratio] 17.8 mg/mg 10-20 [facility] - Hematology and Cell countsOrdered By: Monika Conway on 04-05-2023 Erythrocyte distribution width (RBC) [Entitic vol] 40.6 fL 35.1-43.9 [facility] Erythrocyte distribution width (RBC) [Ratio] 12.2 % 11.6-14.6 [facility] Immature granulocytes/100 WBC (Bld) 0.200 % 0.0-0.9 [facility] Comment on above: IG% - Immature Granu locytes (promyelocytes, myelocytes and metamyelocytes) > 1% indicates that a LEFT SHIFT is Present. MCH (RBC) [Entitic mass] 29.0 pg 27.0-32.0 [facility] Nucleated RBC/100 WBC (Bld) [Ratio] 0 % 0-5 [facility] MCHC Auto (RBC) [Mass/Vol]Or dered By: Monika Conway on 04-05-2023 MCHC (RBC) [Mass/Vol] 32.0 g/dL 32-36 [facility] No Panel InformationOrdered By: Monika Conway on 04-05-2023 Estimated GFR (MDRD) Amer 90 mL/min >60 [facility] Comment on above: GFR Calc Estimated GFR (MDRD) Non-Af Amer 75 mL/min >60 [facility] Comment on above: Non- GFR Calc Thyroid Stimulating Hormone (TSH) 33.70 uIU/mL 0.358-3.74 [facility] Platelets bldOrdered By: Monika Conway on 04-05-2023 Platelets (Bld) [#/Vol] 193 10*3/uL 150-450 [facility] Serum or plasma albumin laci urement (mass/volume)Ordered By: Monika Conway on 04-05-2023 Albumin [Mass/Vol] 3.9 g/dL 3.2-5.0 [facility] Serum or plasma albumin/glob ulin mass ratioOrdered By: Monika Conway on 04-05-2023 Albumin/Globulin [Mass ratio] 1.1 {ratio} 0.9-2.4 [facility] Serum or plasma calcium laci urement (mass/volume)Ordered By: Monika Conway on 04-05-2023 Calcium [Mass/Vol] 8.7 mg/dL 8.5-10.1 [facility] Serum or plasma creatinine m easurement (mass/volume)Ordered By: Monika Conway on 04-05-2023 Creatinine [Mass/Vol] 0.84 mg/dL 0.55-1.02 [facility] Comment on above: The validity of the calculated GFR & GFRAA in patients over 70 years has not been determined. Clinical correlation is essential. Serum or plasma urea nitroge n measurement (mass/volume)Ordered By: Monika Conway on 04-05-2023 Urea nitrogen [Mass/Vol] 15 mg/dL 7-18 [facility] Thin prep Papanicolaou smear with manual screeningOrdered By: Monika Conway on 04-05-2023 Thin prep Papanicolaou smear with manual screening 17 U/L 15-37 [facility] Thin prep Papanicolaou smear with manual screening 6 5-15 [facility] Basophil percentageOrdered B y: Monika Conway on 02-09-2023 Bilirubin [Mass/Vol] 1.00 mg/dL 0.20-1.00 [facility] Comment on above: For patients on eltr ombopag therapy, use of Dimension [place] TBIL is not recommended. Chloride [Moles/Vol] 103 mmol/L 98-107 [facility] Cholesterol [Mass/Vol] 207 mg/dL <200 [facility] Comment on above: <200 mg/dL Desirable 200-240 mg/dL Borderline >240 mg/dL High Risk Glucose [Mass/Vol] 91 mg/dL 74-106 [facility] Potassium [Moles/Vol] 4.0 mmol/L 3.5-5.1 [facility] Protein [Mass/Vol] 7.3 g/dL 6.4-8.2 [facility] Sodium [Moles/Vol] 138 mmol/L 136-145 [facility] Triglyceride [Mass/Vol] 70 mg/dL <199 [facility] Comment on above: The drugs N-Acetylcy steine and Metamizole may falsely depress this assay.Serum Triglycerides Reference Interval Normal <150 mg/dL Borderline high 150 - 199 mg/dL High 200 - 499 mg/dL Very High > or = 500 mg/dL Laboratory - Chemistry and C hemistry - challengeOrdered By: Moinka Conway on 02-09-2023 ALP [Catalytic activity/Vol] 98 U/L 45-117 [facility] ALT [Catalytic activity/Vol] 28 U/L 13-56 [facility] CO2 [Moles/Vol] 27.0 mmol/L 21.0-32.0 [facility] Globulin (S) [Mass/Vol] 3.3 g/dL 2.2-4.2 [facility] T4 [Mass/Vol] 12.5 ug/dL 4.8-13.9 [facility] Urea nitrogen/Creatinine [Mass ratio] 14.4 mg/mg 10-20 [facility] No Panel InformationOrdered By: Monika Conway on 02-09-2023 Estimated GFR (MDRD) Amer 101 mL/min >60 [facility] Comment on above: GFR Calc Estimated GFR (MDRD) Non-Af Amer 83 mL/min >60 [facility] Comment on above: Non- GFR Calc Thyroid Stimulating Hormone (TSH) 3.74 uIU/mL 0.358-3.74 [facility] Serum or plasma albumin laci urement (mass/volume)Ordered By: Monika Conway on 02-09-2023 Albumin [Mass/Vol] 4.0 g/dL 3.2-5.0 [facility] Serum or plasma albumin/glob ulin mass ratioOrdered By: Monika Conway on 02-09-2023 Albumin/Globulin [Mass ratio] 1.2 {ratio} 0.9-2.4 [facility] Serum or plasma calcium laci urement (mass/volume)Ordered By: Monika Conway on 02-09-2023 Calcium [Mass/Vol] 9.0 mg/dL 8.5-10.1 [facility] Serum or plasma cholesterol in HDL measurement (mass/volume)Ordered By: Monika Conway on 02-09-2023 Cholesterol in HDL [Mass/Vol] 63 mg/dL >40 [facility] Comment on above: The drugs N-Acetylcy steine and Metamizole may falsely depress this assay. Reference Range HDL <40 mg/dL Low HDL Cholesterol HDL >or= 60 mg/dL High HDL Cholesterol Serum or plasma cholesterol in VLDL measurement (mass/volume)Ordered By: Monika Conway on 02-09-2023 Cholesterol in VLDL [Mass/Vol] 14 mg/dL 5-40 [facility] Serum or plasma creatinine m easurement (mass/volume)Ordered By: Monika Conway on 02-09-2023 Creatinine [Mass/Vol] 0.76 mg/dL 0.55-1.02 [facility] Comment on above: The validity of the calculated GFR & GFRAA in patients over 70 years has not been determined. Clinical correlation is essential. Serum or plasma low density lipoprotein (LDL) cholesterol measurement (mass/volume)Ordered By: Monika Conway on 02-09-2023 Cholesterol in LDL [Mass/Vol] 130 mg/dL 0-130 [facility] Serum or plasma urea nitroge n measurement (mass/volume)Ordered By: Monika Conway on 02-09-2023 Urea nitrogen [Mass/Vol] 11 mg/dL 7-18 [facility] Thin prep Papanicolaou smear with manual screeningOrdered By: Monika Conway on 02-09-2023 Thin prep Papanicolaou smear with manual screening 26 U/L 15-37 [facility] Thin prep Papanicolaou smear with manual screening 8 5-15 [facility] No Panel InformationOrdered By: Dr. Conway on 02-01-2022 Thyroid Stimulating Hormone (TSH) 0.33 uIU/mL 0.358-3.74 [facility] Cervical or vagninal specime n microscopic examination by cytology stain (reported ason 10-05-2021 Cytology report Cyto stain Doc (Cvx/Vag) Comment . [facility] Work Phone: Comment on above: The Pap [...] (HPV) 16, 18, 31, 33,on 10-05-2021 HPV 16+18+31+33+35+39+45+51+ 52+56+58+59+68 DNA Probe+sig amp Ql (Cvx) Negative [facility] Work Phone: Laboratory - Cytologyon Manufacturing Helper Cyto stain Nom (Cvx/Vag) [ID] Comment . [facility] Work Phone: Comment on above: Aida Chen, J2Ee Consultant (ASCP) Laboratory - Miscellaneous t estson 10-05-2021 Service comment (Unsp spec) [Interp] Comment . [facility] Work Phone: Comment on above: This liquid based Th inPrep(R) pap test was screened withthe use of an image guided system. Service comment (Unsp spec) [Interp] . . [facility] Work Phone: No Panel Informationon 10-05 Pathology report final diagnosis Narrative Comment . [facility] Work Phone: Comment on above: NEGATIVE FOR INTRAEP ITHELIAL LESION OR MALIGNANCY. Absolute lymphocyte counton 10-04-2021 Lymphocytes Auto (Unsp spec) [#/Vol] 1.19 10*3/uL 0.83-4.51 [facility] Work Phone: Basophil percentageon 2021 Basophils/100 WBC (Bld) 0.9 % 0-1 [facility] Work Phone: Cholesterol [Mass/Vol] 252 mg/dL <200 [facility] Work Phone: Comment on above: <200 mg/dL Desirable 200-240 mg/dL Borderline >240 mg/dL High Risk Eosinophils/100 WBC (Bld) 2.7 % 0-5 [facility] Work Phone: Neutrophils (Bld) [#/Vol] 1.8 10*3/uL 2.0-7.7 [facility] Work Phone: Neutrophils/100 WBC (Bld) 53.4 % 47-70 [facility] Work Phone: Triglyceride [Mass/Vol] 65 mg/dL <199 [facility] Work Phone: Comment on above: The drugs N-Acetylcy steine and Metamizole may falsely depress this assay.Serum Triglycerides Reference Interval Normal <150 mg/dL Borderline high 150 - 199 mg/dL High 200 - 499 mg/dL Very High > or = 500 mg/dL WBC (Bld) [#/Vol] 3.4 10*3/uL 4.4-11.0 [facility] Work Phone: Blood erythrocytes count (nu mber/volume)on 10-04-2021 RBC (Bld) [#/Vol] 5.10 10*6/uL 4.2-5.4 [facility] Work Phone: Blood hemoglobin measurement (mass/volume)on 10-04-2021 Hemoglobin (Bld) [Mass/Vol] 14.7 g/dL 12.0-15.0 [facility] Work Phone: Blood lymphocytes/100 leukoc yteson 10-04-2021 Lymphocytes/100 WBC (Bld) 35.3 % 19-41 [facility] Work Phone: Blood monocytes/100 leukocyt eson 10-04-2021 Monocytes/100 WBC (Bld) 7.7 % 0-10 [facility] Work Phone: Blood platelet mean volumeon 10-04-2021 Platelet mean volume (Bld) [Entitic vol] 9.3 fL 6.2-12.0 [facility] Work Phone: Determination of erythrocyte mean corpuscular volume (MCV)on 10-04-2021 MCV (RBC) [Entitic vol] 86.9 fL 81-99 [facility] Work Phone: Hematocrit Auto (Bld) [Volum e fraction]on 10-04-2021 Hematocrit (Bld) [Volume fraction] 44.3 % 37-47 [facility] Work Phone: Laboratory - Chemistry and C hemistry - challengeon 10-04-2021 ALT [Catalytic activity/Vol] 43 U/L 13-56 [facility] Work Phone: T4 [Mass/Vol] 10.8 ug/dL 4.8-13.9 [facility] Work Phone: Laboratory - Hematology and Cell countson 10-04-2021 Erythrocyte distribution width (RBC) [Entitic vol] 39.8 fL 35.1-43.9 [facility] Work Phone: Erythrocyte distribution width (RBC) [Ratio] 12.6 % 11.6-14.6 [facility] Work Phone: Immature granulocytes/100 WBC (Bld) 0.000 % 0.0-0.9 [facility] Work Phone: Comment on above: IG% - Immature Granu locytes (promyelocytes, myelocytes and metamyelocytes) > 1% indicates that a LEFT SHIFT is Present. MCH (RBC) [Entitic mass] 28.8 pg 27.0-32.0 [facility] Work Phone: Nucleated RBC/100 WBC (Bld) [Ratio] 0 % 0-5 [facility] Work Phone: MCHC Auto (RBC) [Mass/Vol]on 10-04-2021 MCHC (RBC) [Mass/Vol] 33.2 g/dL 32-36 [facility] No Panel Informationon 10-04 Thyroid Stimulating Hormone (TSH) 5.81 uIU/mL 0.358-3.74 [facility] Work Phone: Platelets bldon 07-05-2022 Platelets (Bld) [#/Vol] 175 10*3/uL 150-450 [facility] Work Phone: Serum or plasma cholesterol in HDL measurement (mass/volume)on 10-04-2021 Cholesterol in HDL [Mass/Vol] 63 mg/dL >40 [facility] Work Phone: Comment on above: The drugs N-Acetylcy steine and Metamizole may falsely depress this assay. Reference Range HDL <40 mg/dL Low HDL Cholesterol HDL >or= 60 mg/dL High HDL Cholesterol Serum or plasma cholesterol in VLDL measurement (mass/volume)on 10-04-2021 Cholesterol in VLDL [Mass/Vol] 13 mg/dL 5-40 [facility] Work Phone: Serum or plasma low density lipoprotein (LDL) cholesterol measurement (mass/volume)on 10-04-2021 Cholesterol in LDL [Mass/Vol] 176 mg/dL 0-130 [facility] Work Phone: Thin prep Papanicolaou smear with manual screeningon 10-04-2021 Thin prep Papanicolaou smear with manual screening 52 U/L 15-37 [facility] Work Phone: Encounters Encounter Date Encounter Type Care Provider Facility Start: 12-12-2024 ambulatory Eric Lees Facility:[facility] Start: 10-28-2024 End: 10-28-[address] Eric Lees MD Work Phone: -[facility] Start: 10-28-2024 End: 10-28-[address] [facility] Lees [facility] [facility] Start: 10-28-2024 End: 10-28-2024 ambulatory Eric Lees Facility:[facility] Start: 06-30-2024 End: 06-30-[address] Monika Conway MD Work Phone: [facility] Work Phone: Start: 06-30-2024 End: 06-30-[address] Monika Conway MD -Laboratory, [place] Work Phone: Start: 06-30-2024 End: 06-30-2024 ambulatory Monika Conway Facility:[facility] Start: 04-04-2024 End: 04-04-[address] Monika Conway MD -[facility] [place], [facility] Work Phone: Start: 04-04-2024 End: 04-04-2024 ambulatory Monika Conway Facility:[facility] Start: 02-11-2024 End: 02-11-2024 ambulatory Monika Conway Facility:[facility] Start: 07-31-2023 End: 07-31-2023 ambulatory [facility] Work Phone: Start: 07-31-2023 End: 07-31-2023 Patient encounter procedure [facility] Start: 05-08-2023 End: 05-08-2023 Patient encounter procedure [facility] Start: 04-05-2023 End: 04-05-2023 ambulatory [facility] Work Phone: Start: 04-05-2023 End: 04-05-2023 Patient encounter procedure [facility] Start: 02-21-2023 End: 02-21-2023 ambulatory [facility] Work Phone: Start: 02-21-2023 End: 02-21-[address] [facility] Work [facility]: Start: 02-09-2023 End: 02-09-2023 Patient encounter procedure [facility] Start: 05-24-2022 End: 05-24-[address] Mnoika Conway Work Phone: [facility] Work Phone: Start: 05-24-2022 End: 05-24-[address] Monika Conway Work Phone: [facility] Start: 05-05-2022 End: 05-05-[address] Monika Conway Work Phone: [facility] Work Phone: Start: 05-05-2022 End: 05-05-[address] Monika Conway Work Phone: [facility] Start: 03-13-2022 Non-patient / Non-visit Dr. Steve Conway Work Phone: [facility] Start: 03-10-2022 Non-patient / Non-visit Dr. Steve Conway Work Phone: [facility] Start: 03-10-2022 End: 03-10-[address] Monika Conway Work Phone: [facility] Work Phone: Start: 03-10-2022 End: 03-10-[address] Monika Conway Work Phone: [facility]Cardi[facility] Start: 02-28-2022 Non-patient / Non-visit Dr. Steve Conway Work Phone: [facility] Start: 02-28-2022 End: 02-28-[address] Monika Conway Work Phone: [facility] Work Phone: Start: 02-28-2022 End: 02-28-[address] Monika Conway Work Phone[facility] Start: 02-08-2022 End: 02-08-2022 ambulatory [facility] Work Phone: Start: 02-08-2022 End: 02-08-2022 Patient encounter procedure [facility] Start: 02-01-2022 End: 02-01-2022 ambulatory [facility] Work Phone: Start: 02-01-2022 End: 02-01-2022 Patient encounter procedure [facility], [place] [facility] Start: 10-26-2021 End: 10-26-2021 Patient encounter procedure [facility]-Outpatient Breast Imaging Start: 10-13-2021 End: 10-13-2021 [facility] Start: 10-05-2021 End: 10-05-2021 Patient encounter procedure [facility]-Laboratory, Spec[facility] Start: 10-04-2021 End: 10-04-2021 Patient encounter procedure [facility] Procedures Date Procedure Procedure Detail [...] in Cervix by Probe with signal amplification [facility] Work Phone: Path report.final Dx Spec [facility] Work Phone: Immunizations Immunization Date Immunization Notes Care Provider [facility] 12-31-2013 Influenza virus vaccine [facility] Payers Date Payer Category Payer Unknown [id number] 2024 Self-pay [id number] Unknown [id number] Unknown [id number] [id number] Unknown [id number] [id number] [id number] Unknown [id number] [id number] [id number] Unknown [id number] [id number] [id number] Unknown [id number] [id number] [id number] Social History Date Type Detail Facility Start: 04-11-2015 End: 04-11-2015 Tobacco smoking status UTIS Unknown if ever smoked [facility] Start: 10-04-2021 None [facility] Start: 10-04-2021 Homeless [facility] Start: 10-04-2021 Cigarettes [facility] Start: 1965 Sex Assigned At Female [facility] Start: 04-11-2015 Tobacco smoking stat [facility] Current Light tobacco smoker [facility] Start: 07-02-2024 Sex Female (finding) [facility] Clinical Note 10-05-2021 Note Date & Type Note Facility 10-05-2021 Note [facility] Work Phone: Pap Smear Specimen Adequacy October 05, 2021 12:00pm Comment . Satisfactory for evaluation. Endocervical and/or squamous metaplasticcells (endocervical component) are present. Comment on above: Satisfactory for amrik luation. Endocervical and/or squamous metaplasticcells (endocervical component) are present. Clinical Note 10-05-2021 Note Date & Type Note Facility 10-05-2021 Note [facility] Work Phone: Pap Smear Specimen Adequacy October 05, 2021 12:00pm Comment . Satisfactory for evaluation. Endocervical and/or squamous metaplasticcells (endocervical component) are present. Comment on above: Satisfactory for amrik luation. Endocervical and/or squamous metaplasticcells (endocervical component) are present. Evaluation note Note Date & Type Note Facility Evaluation note No assessment information availa ble [facility] Work Phone: Reason for referral (narrative) Note Date & Type Note Facility Reason for referral (narrative) No reason for referral information available [facility] Work Phone: Chief Complaint and Reason for [...] Date LUNG NODULE ABNORMAL XRAY April 04 1:42pm FASTING June 30, 2024 10: 02am [...] No April 09 6 4:59am Power of Beam Machine Operator No April 09 016 4:59am Advance Directive Response Recorded Date/ Time Advance Directives No April 09, 2015 3:59am Living Will No April 09 6 3:59am Power of Beam Machine Operator No April 09 016 3:59am Advance Directive Response Recorded Date/ [...] 30, 2024 End: June 30, 2024 Dr. Moinka Conway MD Attending Provider Active Start: June 30, 2024 End: June 30, 2024 Dr. Monika Conway MD Referring Provider Active Start: June 30, 2024 End: June 30, 2024 Team Status: Active Member Role/Relationship Status Dates Dr. Monika Conway MD Family Provider Active Dr. Eric Lees MD Primary Care Provider Active Team Status: Inactive Member Role/Relationship Status Dates Dr. Eric Lees MD Primary Care Provider Active Start: October 28, 2024 End: October 28, 2024 Dr. Eric Lees MD Attending Provider Active Start: October 28, 2024 End: October 28, 2024 Dr. Eric Lees MD Referring Provider Active Start: October 28, 2024 End: October 28, 2024 INFORMATION SOURCE (unrecogn ized section and content) DATE CREATED AUTHOR 12/14/2024 [facility] FOR RECORDS PERTAINING TO PATIENTS WHO ARE [...] BE BASED ON THE PRIMARY CLINICAL RECORDS. [employer] provides no warranty or guarantee of the accuracy or completeness of information in this document.
[2024-12-25 17:56] LABS: Hematocrit 45.7 % (37-47); Hemoglobin 15.2 g/dL (12.0-15.0); Immature Granulocytes Count 0.020 X10^3/uL (0.0-0.0); Mean Corp Hgb Conc 33.3 g/dL (32-36); Mean Corpuscular Volume 88.6 fL (81-99); Mean Platelet Vol. 8.9 fl (6.2-12.0); NRBC Flagged by Analyzer 0 % (0-5); Platelet Count 192 K/mm3 (150-450); RBC Distribution Width CV 13.2 % (11.6-14.6); RBC Distribution Width SD 43.1 fl (35.1-43.9); Red Blood Count 5.16 M/mm3 (4.2-5.4); White Blood Count 5.5 K/mm3 (4.4-11.0)
[2024-12-25 18:21] LABS: AST(SGOT) 25 U/L (<=31); Alanine Aminotransfer ALT/SGPT 21 U/L (<=34); Albumin, Serum 4.6 g/dL (3.5-5.0); Alkaline Phosphatase 95 U/L (35-104); Anion Gap 12 (5-15); BUN 7 mg/dL (4-19); BUN/Creat Ratio 8.5 RATIO (10-20); Calcium,Total 9.2 mg/dL (7.6-11.0); Carbon Dioxide 25.5 mmol/L (21.0-32.0); Chloride 100 mmol/L (98-108); Free T3 0.9 pg/mL (2.18-3.98); Globulin 2.5 g/dL (2.2-4.2); Glucose 91 mg/dL (70-99); Potassium 3.9 mmol/L (3.3-5.1)
== END | disposition home or self-care (01) ==
LOC: MTLAB 16:40
PROVIDERS: PCP Family Medicine; Referring Provider Family Medicine; Visit Provider Family Medicine
DX: R19.7 Diarrhea, unspecified (principal); E03.9 Hypothyroidism, unspecified
CPT/HCPCS: 36415; 74022; 80053; 84439; 84443; 84481; 85025

== ENCOUNTER → 2024-12-26 | Outpatient (CLI) | payer SELFPAY | END | disposition home or self-care (01) | LOC: MTLAB 09:21 | PROVIDERS: PCP Family Medicine; Referring Provider Family Medicine; Visit Provider Family Medicine | DX: R19.7 Diarrhea, unspecified (principal) | CPT/HCPCS: 87493; 87506 ==

== ENCOUNTER → 2025-02-02 | Outpatient (CLI) | payer SELFPAY ==
[2025-02-02 18:19] LABS: Free T3 3.0 pg/mL (2.18-3.98)
== END | disposition home or self-care (01) ==
LOC: MFPLAB 16:55
PROVIDERS: PCP Family Medicine; Visit Provider Family Medicine
DX: E03.9 Hypothyroidism, unspecified (principal)
CPT/HCPCS: 36415; 84439; 84443; 84481